=== PATIENT | male | born 1950 | race Caucasian/White ===

== ENCOUNTER 2019-01-07 14:04 | Emergency (ER) | payer OTHER ==
[2019-01-07 14:15] VITALS: BP 154/86; PULSE 96; TEMP 98.6; BMI 34.3
--- NOTE | 2019-01-07 14:15 | PDOC ---
Rapid Medical Evaluation Chief Complaint: Rash Time Seen by Provider: 01/07/19 14:12 Medical Evaluation: Allergies Allergy/AdvReac Type Severity Reaction Status Date / Time Penicillins Allergy Mild Rash Verified 09/15/12 14:08 01/07/19 14:13 I have performed a brief in-person evaluation of this patient. The patient presents with a chief complaint of: rash to left palm, bilatreral groin x 2 weeks= used alcohol to clean both sites. No other meds , no fevers Pertinent physical exam findings: cracked itching to left palm/ and bilateral groins. I have ordered the following: nothing The patient will proceed to the ED for further evaluation. Discharge Disposition - Discharge Dispostion Condition at time of disposition: Stable - Referrals - Patient Instructions - Post Discharge Activity
--- NOTE | 2019-01-07 15:12 | PDOC ---
History of Present Illness - General Chief Complaint: Rash Stated Complaint: LT ARM RASH Time Seen by Provider: 01/07/19 14:12 - History of Present Illness Initial Comments: 01/07/19 15:10 68-year-old male with a past medical history significant for prostate cancer presents for evaluation of the pleuritic rash on his left palm and bilateral legs increasing over the last week or so. No systemic symptoms. Past History - Past Medical History Allergies/Adverse Reactions: Allergies Allergy/AdvReac Type Severity Reaction Status Date / Time Penicillins Allergy Mild Rash Verified 09/15/12 14:08 Home Medications: Ambulatory Orders No Home Medications 0 dose .ROUTE UTDICT 08/04/12 Cyclobenzaprine HCl [Flexeril] 10 mg PO TID PRN #14 tablet 09/15/12 Naproxen [Naprosyn] 500 mg PO BID PRN #20 tablet 09/15/12 Nystatin Cream [Mycostatin Cream -] 1 applic TP BID #1 applic 01/07/19 Cancer: Yes (H/O PROSTATE) COPD: No - Surgical History Appendectomy: Yes - Immunization History Immunization Up to Date: No - Suicide/Smoking/Psychosocial Hx Smoking Status: Yes Smoking History: Never smoked Have you smoked in the past 12 months: No Number of Cigarettes Smoked Daily: 10 Information on smoking cessation initiated: No Hx Alcohol Use: No Drug/Substance Use Hx: No Review of Systems - Review of Systems Integumentary: Yes: Pruritus, Rash *Physical Exam - Vital Signs Last Vital Signs Temp Pulse Resp BP Pulse Ox 98.6 F 96 H 16 154/86 98 01/07/19 14:12 01/07/19 14:12 01/07/19 14:12 01/07/19 14:12 01/07/19 14:12 - Physical Exam Comments: 01/07/19 15:10 There is a mildly erythematous scaly raised rash on the left volar aspect of the wrist same rashes on the anterior aspect of the superior medial thigh. Bilaterally. No indication of infection Medical Decision Making - Medical Decision Making 01/07/19 15:10 This rash appears fungal. I will prescribe nystatin have patient follow-up with dermatology. *DC/Admit/Observation/Transfer Diagnosis at time of Disposition: Rash - Discharge Dispostion Disposition: HOME Condition at time of disposition: Stable Decision to Admit order: No - Prescriptions Prescriptions: Nystatin Cream [Mycostatin Cream -] 1 applic TP BID #1 applic - Referrals Referrals: Sukhdeep Bowden MD [Primary Care Provider] - Rocio Ragsdale MD [Staff Physician] - - Patient Instructions Additional Instructions: Please use the cream as directed return to the emergency room for worsening symptoms and follow-up with dermatology without fail in 1-2 days for further evaluation and treatment options. - Post Discharge Activity
== END 2019-01-07 15:15 | disposition home or self-care (01) ==
LOC: JERFT 14:04
DX: R21 Rash and other nonspecific skin eruption (principal); Z85.46 Personal history of malignant neoplasm of prostate
CPT/HCPCS: 99281-25

== ENCOUNTER 2019-04-14 23:25 | Emergency (ER) | payer OTHER ==
[2019-04-14 23:53] VITALS: BP 128/79; PULSE 89; TEMP 97.5; BMI 29.7
--- NOTE | 2019-04-15 00:04 | PDOC ---
Attending Attestation - Resident Resident Name: Edgardo Gilbert - ED Attending Attestation I have performed the following: I have examined & evaluated the patient, The case was reviewed & discussed with the resident, I agree w/resident's findings & plan - HPI HPI: 04/15/19 00:24 see resident hpi - Physicial Exam PE: 04/15/19 00:24 agree with resident exam - Medical Decision Making 04/15/19 00:24 68 yo male s/p fall with left rib pain CT CAP to r/o pulmonary/splenic injury analgesics exam/history most c/w rib injury
--- NOTE | 2019-04-15 00:07 | PDOC ---
History of Present Illness - General Chief Complaint: Back Pain Stated Complaint: BACK PAIN Time Seen by Provider: 04/14/19 23:51 History Source: Patient Exam Limitations: No Limitations - History of Present Illness Initial Comments: Jules Norman is a 68 yo M w a hx of Prostate problems who works at [employer] in [facility] that presents to the ER with his and daughter with severe left rib pain after he slipped and fell in the bathroom 48 hours ago and landed on his left ribs. Patient states he simply lost his balance, did not hit his head, did not experience any LOC, and did not experience any other injuries. Patient denies having any chest pain, SOB, or difficulty breathing. Patient also denies having a headache, nausea, vomiting, dysuria, frequency, or urgency. PCP: Sukhdeep Bowden PSH: Appendectomy Social Hx: Smokes ~ 9 cigs/day, denies alcohol or illicit drug usage Allergies: Penicillins Past History - Past Medical History Allergies/Adverse Reactions: Allergies Allergy/AdvReac Type Severity Reaction Status Date / Time Penicillins Allergy Mild Rash Verified 04/14/19 23:53 Home Medications: Ambulatory Orders No Home Medications 0 dose .ROUTE UTDICT 08/04/12 Cyclobenzaprine HCl [Flexeril] 10 mg PO TID PRN #14 tablet 09/15/12 Naproxen [Naprosyn] 500 mg PO BID PRN #20 tablet 09/15/12 Nystatin Cream [Mycostatin Cream -] 1 applic TP BID #1 applic 01/07/19 Oxycodone HCl/Acetaminophen [Percocet 5-325 mg Tablet] 1 - 2 tab PO Q8H PRN #12 tab MDD 6 04/15/19 Cancer: Yes (H/O PROSTATE) COPD: No - Surgical History Appendectomy: Yes - Immunization History Immunization Up to Date: No - Psycho Social/Smoking Cessation Hx Smoking Status: Yes Smoking History: Never smoked Have you smoked in the past 12 months: No Number of Cigarettes Smoked Daily: 10 Information on smoking cessation initiated: No Hx Alcohol Use: No Drug/Substance Use Hx: No Review of Systems - Review of Systems Able to Perform ROS?: Yes Comments:: CONSTITUTIONAL: Absent: fever, no chills, no fatigue EYES: Absent: visual changes ENT: Absent: ear pain, no sore throat CARDIOVASCULAR: Absent: chest pain, no palpitations RESPIRATORY: Absent: cough, no SOB GI: Absent: abdominal pain, no nausea, no vomiting, no constipation, no diarrhea GENITOURINARY: Absent: dysuria, no frequency, no hematuria MUSKULOSKELETAL: Present: arthralgia Absent: back pain, no myalgia SKIN: Absent: rash NEURO: Absent: headache *Physical Exam - Vital Signs Last Vital Signs Temp Pulse Resp BP Pulse Ox 97.5 F L 89 19 128/79 98 04/14/19 23:30 04/14/19 23:30 04/14/19 23:30 04/14/19 23:30 04/14/19 23:30 - Physical Exam Comments: GENERAL: Patient is awake, alert and in no acute distress. Speech is clear and appropriate. HEAD: Atraumatic and nontender. HEENT: Pupils are equal round and reactive to light, extraocular movements are intact. No facial deformity. No facial bone tenderness or step-off. NECK: The trachea is midline, there is no stridor. There is no midline cervical spine tenderness, full range of motion of neck. CHEST: There is a significant amount of left lower rib pain in the mid axillary line. No ecchymosis or abrasions. Equal chest wall expansion bilaterally. No flail segments. Lungs are clear to auscultation bilaterally. CARDIOVASCULAR: S1-S2, regular rate and rhythm. No murmurs or rubs. ABDOMEN: Soft, nontender, nondistended. Bowel sounds are normoactive. There is no abdominal or flank ecchymosis. BACK/PELVIS: There is no midline thoracic or lumbosacral spine tenderness or step-off. Pelvis is stable and nontender. EXTREMITIES: There is no extremity deformity or joint swelling. There is significant left lower rib bony tenderness. 2+ distal pulses throughout. NEURO: Alert and oriented x3. 5 out of 5 motor strength x4 extremities. No gross sensory deficits. Gait is stable. SKIN: No abrasions, hematomas, lacerations. PSYCH: Affect is appropriate ED Treatment Course - LABORATORY CBC & Chemistry Diagram: 04/15/19 00:29 04/15/19 00:29 - RADIOLOGY Radiograph Interpretation: CT: EXAM: CT chest, abdomen and pelvis with contrast HISTORY: Trauma COMPARISON: None. FINDINGS: CT chest:There is no aortic dissection or aneurysm. No mediastinal hematoma. There is no significant mediastinal or hilar adenopathy. The heart size is normal. The trachea and bronchi are patent. There is no pleural or pericardial effusion. Multiple right pleural calcified plaques are noted with subpleural atelectasis and/or fibrosis, possibly due to old hemorrhage or old infection. No pneumothorax. No pulmonary contusion. No fractures. CT abdomen and pelvis: Mild bilateral renal scarring is noted. The liver is fatty. Normal gallbladder, pancreas, spleen, adrenal glands . The stomach and abdominal small and large bowel are normal. There is no aortic dissection or aneurysm. There is no significant retroperitoneal lymphadenopathy. No mesenteric edema or retroperitoneal hematoma. The pelvic small and large bowel are normal. There is no evidence of appendicitis. The urinary bladder and prostate gland are normal. No pelvic free fluid is identified. There is no significant pelvic lymphadenopathy. No fractures IMPRESSION: Multifocal right pleural plaques with some adjacent scarring or atelectasis may be secondary to old infection or old hemorrhage. Fatty liver. Bilateral renal scarring. No evidence of acute traumatic pathology in the chest, abdomen or pelvis. Medical Decision Making - Medical Decision Making Jules Norman is a 68 yo M w a hx of Prostate problems who works at [employer] in [facility] that presents to the ER with his and daughter with severe left rib pain after he slipped and fell in the bathroom 48 hours ago and landed on his left ribs. Patient states he simply lost his balance, did not hit his head, did not experience any LOC, and did not experience any other injuries. Patient denies having any chest pain, SOB, or difficulty breathing. Patient also denies having a headache, nausea, vomiting, dysuria, frequency, or urgency. Vital Signs Temp Pulse Resp BP Pulse Ox 97.5 F L 89 19 128/79 98 04/14/19 23:30 04/14/19 23:30 04/14/19 23:30 04/14/19 23:30 04/14/19 23:30 DDx IBNLT: Rib fx, flail segment, pneumothorax, PNA, pulm contusion, splenic rupture vs laceration, ASHA, electrolyte/metabolic disturbance Plan: Labs, analgesia, CT, re-assess. Labs: Elevated BUN CT: Unremarkable Re-assessment: Patient feels better after analgesia Disposition: Home with PCP fu - Percocet for pain control - Incentive spirometry - Return precautions *DC/Admit/Observation/Transfer Diagnosis at time of Disposition: Rib contusion Qualifiers: Encounter type: initial encounter Laterality: left Qualified Code(s): S20.212A - Contusion of left front wall of thorax, initial encounter - Discharge Dispostion Disposition: HOME Condition at time of disposition: Stable Decision to Admit order: No - Prescriptions Prescriptions: Oxycodone HCl/Acetaminophen [Percocet 5-325 mg Tablet] 1 - 2 tab PO Q8H PRN #12 tab MDD 6 PRN Reason: Pain - Referrals Referrals: Sukhdeep Bowden MD [Primary Care Provider] - - Patient Instructions Printed Discharge Instructions: DI for Rib Contusion Additional Instructions: You came into the ER with left rib pain. We did a cat scan which showed no acute fractures. 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 Please make sure to schedule a follow up appointment with your PCP in the next 3 to 5 days. Come back to the ER if your pain worsens or you have any other new or worsening concerns. thank you for coming to the [facility] ER. We hope you feel better soon! Print Language: NIGERIEN - Post Discharge Activity Forms/Work/School Notes: Back to Work Discharge - Discharge Information Problems reviewed: Yes Clinical Impression/Diagnosis: Rib contusion Qualifiers: Encounter type: initial encounter Laterality: left Qualified Code(s): S20.212A - Contusion of left front wall of thorax, initial encounter Condition: Stable Disposition: HOME - Additional Discharge Information Prescriptions: Oxycodone HCl/Acetaminophen [Percocet 5-325 mg Tablet] 1 - 2 tab PO Q8H PRN #12 tab MDD 6 PRN Reason: Pain - Follow up/Referral Referrals: Sukhdeep Bowden MD [Primary Care Provider] - - Patient Discharge Instructions Patient Printed Discharge Instructions: DI for Rib Contusion Additional Instructions: You came into the ER with left rib pain. We did a cat scan which showed no acute fractures. 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 Please make sure to schedule a follow up appointment with your PCP in the next 3 to 5 days. Come back to the ER if your pain worsens or you have any other new or worsening concerns. thank you for coming to the [facility] ER. We hope you feel better soon! Print Language: NIGERIEN - Post Discharge Activity Work/Back to School Note: Back to Work
[2019-04-15] MEDS ORDERED: SODIUM CHLORIDE 0.9% 500 ML INFUS.BAG IV ONE (00:21)
[2019-04-15] MEDS ORDERED: morphine CARPU-JECT 4 MG/1 ML DISP.SYRIN IVPUSH ONE (00:21)
[2019-04-15] MEDS ORDERED: morphine SULFATE 4 MG/ML VIAL ONE (00:28)
[2019-04-15 00:41] LABS: BASO % 1.1 % (0-2.0); EOS % 5.6 % (0-4.5); HEMATOCRIT 44.6 % (35.4-49); HEMOGLOBIN 14.4 GM/dL (11.7-16.9); LYMPH % 9.8 % (8-40); MCH 29.8 pg (25.7-33.7); MCHC 32.3 g/dl (32.0-35.9); MEAN CELL VOLUME 92.2 fl (80-96); MEAN PLT VOLUME 9.2 fl (7.5-11.1); MONO % 7.5 % (3.8-10.2); PLATELET COUNT 172 K/MM3 (134-434); RBC 4.84 M/mm3 (4.00-5.60); RDW 14.9 % (11.9-15.9); WHITE BLOOD COUNT 5.7 K/mm3 (4.0-10.0)
[2019-04-15 01:17] LABS: ALBUMIN 3.7 g/dl (3.4-5.0); BILIRUBIN,TOTAL 0.2 mg/dL (0.2-1); BLOOD UREA NITROGEN 21.2 mg/dL (7-18); CALCIUM 8.8 mg/dL (8.5-10.1); CREATININE 0.8 mg/dL (0.55-1.3); POTASSIUM 3.9 mmol/L (3.5-5.1); TOT PROT 7.5 g/dl (6.4-8.2)
[2019-04-15] MEDS ORDERED: LIDOCAINE 5% TOPICAL PATCH TP ONE (01:20)
[2019-04-15] MEDS ORDERED: LIDOCAINE 5% TOPICAL PATCH ONE (01:21)
[2019-04-15] MEDS ORDERED: LIDOCAINE PATCH REMOVAL MC SCH (22:00)
== END 2019-04-15 03:33 | disposition home or self-care (01) ==
LOC: JER 23:25
PROC: 3E033NZ Introduction of Analgesics, Hypnotics, Sedatives into Peripheral Vein, Percutaneous Approach (ICD-10-PCS; principal; 2019-04-14)
PROC: 3E0337Z Introduction of Electrolytic and Water Balance Substance into Peripheral Vein, Percutaneous Approach (ICD-10-PCS; 2019-04-14)
DX: S20.212A Contusion of left front wall of thorax, initial encounter (principal); W01.0XXA Fall on same level from slipping, tripping and stumbling without subsequent striking against object, initial encounter; Y93.89 Activity, other specified; Y92.002 Bathroom of unspecified non-institutional (private) residence as the place of occurrence of the external cause; Z88.0 Allergy status to penicillin; Z85.46 Personal history of malignant neoplasm of prostate
CPT/HCPCS: 36415; 71260-TC; 74177-TC; 80053; 85025; 99282-25

== ENCOUNTER 2020-11-02 14:39 | Emergency (ER) | payer OTHER ==
[2020-11-02 14:47] VITALS: TEMP 97.9; BMI 46.8
[2020-11-02] MEDS ORDERED: ACETAMINOPHEN 500 MG TABLET (FP) PO ONE (15:20)
[2020-11-02] MEDS ORDERED: ACETAMINOPHEN 325 MG TABLET (FP) ONE (15:46)
[2020-11-02] MEDS ORDERED: BACITRACIN 15 GM TUBE TOPICAL OINTMENT TP ONE (17:48)
[2020-11-02] MEDS ORDERED: BACITRACIN 0.9 GM PACKET ONE (17:58)
[2020-11-02 18:11] VITALS: BP 145/85; PULSE 89
== END 2020-11-02 18:11 | disposition home or self-care (01) ==
LOC: JER 14:39
DX: S00.81XA Abrasion of other part of head, initial encounter (principal); S09.90XA Unspecified injury of head, initial encounter; S76.312A Strain of muscle, fascia and tendon of the posterior muscle group at thigh level, left thigh, initial encounter
CPT/HCPCS: 70450-TC; 72125-TC; 73523-TC-FY; 93005; 93010; 99285-25

== ENCOUNTER 2020-11-03 20:44 | Emergency (ER) | payer OTHER ==
[2020-11-03 20:59] VITALS: BP 106/73; PULSE 84; TEMP 97.8; BMI 34.3
[2020-11-03 23:40] LABS: BASO % 0.8 % (0-2.0); EOS % 4.6 % (0-4.5); HEMATOCRIT 43.2 % (35.4-49); HEMOGLOBIN 14.4 GM/dL (11.7-16.9); LYMPH % 11.7 % (8-40); MCHC 33.4 g/dl (32.0-35.9); MEAN CELL VOLUME 92.8 fl (80-96); MEAN PLT VOLUME 9.8 fl (7.5-11.1); NEUT % 75.9 % (42.8-82.8); PLATELET COUNT 163 K/MM3 (134-434); RBC 4.66 M/mm3 (4.00-5.60); WHITE BLOOD COUNT 6.2 K/mm3 (4.0-10.0)
[2020-11-03 23:50] LABS: INR 0.98 (0.83-1.09); PROTHROMBIN TIME (PATIENT) 11.9 SEC (9.7-13.0)
[2020-11-03 23:53] LABS: ACTIVATED PTT 30.5 SECONDS (25.2-36.5)
[2020-11-03 23:55] LABS: CALCIUM 8.5 mg/dL (8.5-10.1)
[2020-11-03 23:56] LABS: ALBUMIN 3.5 g/dl (3.4-5.0); BLOOD UREA NITROGEN 14.8 mg/dL (7-18)
[2020-11-03 23:59] LABS: CREATININE 0.7 mg/dL (0.55-1.3)
[2020-11-04 00:01] LABS: BILIRUBIN,TOTAL 0.2 mg/dL (0.2-1); TOT PROT 7.6 g/dl (6.4-8.2)
== END 2020-11-04 00:58 | disposition home or self-care (01) ==
LOC: JER 20:44
DX: S00.83XA Contusion of other part of head, initial encounter (principal)
CPT/HCPCS: 36415; 70450-TC; 72125-TC; 73130-TC-RT-FY; 80053; 82550; 82553; 84484; 85025; 85610; 85730; 93005; 93010; 99284-25

== ENCOUNTER 2021-10-31 06:16 | Observation (INO) | payer OTHER ==
[2021-10-31 06:22] VITALS: BMI 28.8
[2021-10-31] MEDS ORDERED: ASPIRIN 81 MG CHEWABLE TABLETS PO ONE (06:25)
[2021-10-31] MEDS ORDERED: ASPIRIN 81 MG CHEWABLE TABLETS ONE (06:29)
[2021-10-31] MEDS ORDERED: ALBUTEROL SO4 2.5/IPRATROPIUM 0.5 INH SOL 3 ML VIAL.NEB. NEB ONE ×2 (06:45→06:48)
[2021-10-31 07:10] LABS: BASO % 1.3 % (0-2.0); EOS % 1.4 % (0-4.5); HEMATOCRIT 46.5 % (35.4-49); HEMOGLOBIN 16.3 GM/dL (11.7-16.9); LYMPH % 21.5 % (8-40); MEAN CELL VOLUME 91.5 fl (80-96); MEAN PLT VOLUME 11.2 fl (7.5-11.1); NEUT % 67.8 % (42.8-82.8); PLATELET COUNT 155 10^3/uL (134-434); RBC 5.08 M/mm3 (4.00-5.60); RDW 14.7 % (11.9-15.9); WHITE BLOOD COUNT 3.5 K/mm3 (4.0-10.0)
[2021-10-31 07:18] LABS: INR 1.05 (0.83-1.09); PROTHROMBIN TIME (PATIENT) 12.1 SEC (9.7-13.0)
[2021-10-31 07:20] LABS: ACTIVATED PTT 30.1 SECONDS (25.2-36.5)
[2021-10-31 07:28] LABS: CHLORIDE 102 mmol/L (98-107); SODIUM 136 mmol/L (136-145)
[2021-10-31 07:31] LABS: ALBUMIN 2.7 g/dl (3.4-5.0); ANION GAP 11 MMOL/L (8-16); CO2 24 mmol/L (21-32); GLUCOSE,RANDOM 182 mg/dL (74-106); MAGNESIUM 1.7 mg/dL (1.8-2.4)
[2021-10-31 07:34] LABS: CREATININE 1.1 mg/dL (0.55-1.3)
[2021-10-31 07:36] LABS: BILIRUBIN,TOTAL 0.9 mg/dL (0.2-1)
[2021-10-31 07:37] LABS: ALK PHOS 98 U/L (45-117)
[2021-10-31 07:39] LABS: BLOOD UREA NITROGEN 22.4 mg/dL (7-18); TOT PROT 6.7 g/dl (6.4-8.2)
[2021-10-31] MEDS ORDERED: MAGNESIUM SULF 50% (8.12 MEQ/2 ML-1 GM VIAL) IVPB ONE (07:39)
[2021-10-31] MEDS ORDERED: LACTATED RINGERS SOLUTION 1000 ML INFUS.BAG IV ONE (07:40)
[2021-10-31] MEDS ORDERED: TRIMETHOBENZAMIDE HCL 200MG/2ML INJ IM ONE ×2 (07:55→08:24)
[2021-10-31] MEDS ORDERED: MAGNESIUM SULF 50% (8.12 MEQ/2 ML-1 GM VIAL) ONE (07:55)
[2021-10-31 09:49] LABS: CHOLESTEROL 271 mg/dL (50-200)
[2021-10-31 09:50] LABS: LDL CHOLESTEROL (ONLY SJRH) 73 mg/dL (5-100)
[2021-10-31 09:52] LABS: HDL CHOLESTEROL 19 mg/dL (40-60)
[2021-10-31] MEDS ORDERED: LORazepam 2 MG/ML SDV VIAL IVPB ONE (09:57)
[2021-10-31 10:03] LABS: TRIGLYCERIDES 2683 mg/dL (0-150)
[2021-10-31] MEDS ORDERED: LORazepam 2 MG/ML SDV VIAL IVPUSH STA (10:09)
[2021-10-31] MEDS: metoPROLOL SUCCINATE 25 MG TAB.SR.24H (FP) PO SCH (15:23)
[2021-10-31] MEDS: ATORVASTATIN CA 40 MG TABLET (FP) PO SCH (21:25)
[2021-11-01] MEDS: GEMFIBROZIL 600 MG TABLET (FP) PO SCH ×2 (06:08→18:14)
[2021-11-01] MEDS: ENOXAPARIN NA (PORCINE) 40 MG/0.4 ML DISP.SYRIN SQ SCH (09:57)
[2021-11-01] MEDS: TAMSULOSIN HCL 0.4 MG CAP PO SCH (09:57)
[2021-11-01] MEDS: metoPROLOL SUCCINATE 25 MG TAB.SR.24H (FP) PO SCH (09:58)
[2021-11-01] MEDS ORDERED: methylPREDNISolone NA SUCC 40 MG/1 ML VIAL IVPUSH SCH (10:00)
[2021-11-01 10:08] LABS: HEMATOCRIT 40.9 % (35.4-49); HEMOGLOBIN 13.4 GM/dL (11.7-16.9); MCH 30.3 pg (25.7-33.7); MCHC 32.8 g/dl (32.0-35.9); MEAN CELL VOLUME 92.4 fl (80-96); MEAN PLT VOLUME 10.6 fl (7.5-11.1); PLATELET COUNT 111 10^3/uL (134-434); RBC 4.42 M/mm3 (4.00-5.60); RDW 14.7 % (11.9-15.9); WHITE BLOOD COUNT 3.1 K/mm3 (4.0-10.0)
[2021-11-01 10:43] LABS: CALCIUM 7.7 mg/dL (8.5-10.1); MAGNESIUM 1.9 mg/dL (1.8-2.4)
[2021-11-01 10:46] LABS: BLOOD UREA NITROGEN 15.7 mg/dL (7-18); CREATININE 1.1 mg/dL (0.55-1.3)
[2021-11-01] MEDS ORDERED: FUROSEMIDE 40 MG/4 ML INJECTABLE VIAL IVPUSH ONE (11:15)
[2021-11-01] MEDS ORDERED: NICOTINE POLACRILEX 4 MG GUM BUC PRN (13:12)
[2021-11-01] MEDS: NICOTINE 21 MG/24 HOURS TOPICAL PATCH TD SCH (14:28)
[2021-11-01] MEDS: methylPREDNISolone NA SUCC 40 MG/1 ML VIAL IVPUSH SCH (18:14)
[2021-11-01] MEDS: LEVALBUTEROL HCL 0.31 MG/3 ML VIAL.NEB IH SCH (21:25)
[2021-11-01] MEDS: ATORVASTATIN CA 40 MG TABLET (FP) PO SCH (21:27)
[2021-11-02] MEDS: methylPREDNISolone NA SUCC 40 MG/1 ML VIAL IVPUSH SCH ×3 (02:30→17:26)
[2021-11-02] MEDS: GEMFIBROZIL 600 MG TABLET (FP) PO SCH ×2 (06:00→17:15)
[2021-11-02 07:11] LABS: HEMATOCRIT 42.9 % (35.4-49); HEMOGLOBIN 14.1 GM/dL (11.7-16.9); MCH 30.3 pg (25.7-33.7); MCHC 32.9 g/dl (32.0-35.9); MEAN PLT VOLUME 10.9 fl (7.5-11.1); PLATELET COUNT 115 10^3/uL (134-434); RBC 4.66 M/mm3 (4.00-5.60); RDW 14.9 % (11.9-15.9); WHITE BLOOD COUNT 6.4 K/mm3 (4.0-10.0)
[2021-11-02 07:36] LABS: BLOOD UREA NITROGEN 17.3 mg/dL (7-18); CALCIUM 8.8 mg/dL (8.5-10.1); MAGNESIUM 1.9 mg/dL (1.8-2.4)
[2021-11-02 07:39] LABS: CREATININE 1.2 mg/dL (0.55-1.3); PHOSPHOROUS 1.8 mg/dL (2.5-4.9)
[2021-11-02] MEDS: LEVALBUTEROL HCL 0.31 MG/3 ML VIAL.NEB IH SCH ×3 (07:44→22:45)
[2021-11-02] MEDS: ENOXAPARIN NA (PORCINE) 40 MG/0.4 ML DISP.SYRIN SQ SCH (09:11)
[2021-11-02] MEDS: TAMSULOSIN HCL 0.4 MG CAP PO SCH (09:11)
[2021-11-02] MEDS: NICOTINE 21 MG/24 HOURS TOPICAL PATCH TD SCH (09:12)
[2021-11-02] MEDS: LISINOPRIL 10 MG TABLET PO SCH (09:12)
[2021-11-02 10:44] LABS: ANISOCYTOSIS 2+; MACROCYTOSIS 0; TEAR DROP CELLS 1+
[2021-11-02] MEDS: FUROSEMIDE 40 MG/4 ML INJECTABLE VIAL IVPUSH SCH (11:11)
[2021-11-02] MEDS: MAGNESIUM OXIDE 400 MG TABLET (FP) PO SCH ×2 (11:11→21:05)
[2021-11-02] MEDS ORDERED: AZITHROMYCIN 250 MG TABLET PO SCH (11:30)
[2021-11-02] MEDS ORDERED: AZITHROMYCIN 250 MG TABLET PO ONE (12:30)
[2021-11-02] MEDS: ATORVASTATIN CA 40 MG TABLET (FP) PO SCH (21:05)
[2021-11-02] MEDS ORDERED: chlordiazePOXIDE HCL 10 MG CAPSULE PO ONE (21:28)
[2021-11-03] MEDS: methylPREDNISolone NA SUCC 40 MG/1 ML VIAL IVPUSH SCH ×2 (02:08→10:43)
[2021-11-03 06:21] VITALS: BP 117/68; PULSE 83; TEMP 98.2
[2021-11-03] MEDS: GEMFIBROZIL 600 MG TABLET (FP) PO SCH (06:39)
[2021-11-03 07:33] LABS: HEMATOCRIT 42.1 % (35.4-49); MCH 30.5 pg (25.7-33.7); MCHC 33.2 g/dl (32.0-35.9); MEAN CELL VOLUME 91.7 fl (80-96); PLATELET COUNT 111 10^3/uL (134-434); RBC 4.59 M/mm3 (4.00-5.60); WHITE BLOOD COUNT 9.5 K/mm3 (4.0-10.0)
[2021-11-03 07:44] LABS: ALBUMIN 2.8 g/dl (3.4-5.0); BLOOD UREA NITROGEN 26.8 mg/dL (7-18)
[2021-11-03 07:45] LABS: CALCIUM 8.6 mg/dL (8.5-10.1)
[2021-11-03 07:47] LABS: CREATININE 1.2 mg/dL (0.55-1.3)
[2021-11-03 07:50] LABS: BILIRUBIN,TOTAL 0.6 mg/dL (0.2-1); TOT PROT 6.5 g/dl (6.4-8.2)
[2021-11-03] MEDS: LEVALBUTEROL HCL 0.31 MG/3 ML VIAL.NEB IH SCH (08:30)
[2021-11-03 09:26] LABS: PLATELET ESTIMATE DECREASED; TARGET CELLS 1+
[2021-11-03] MEDS ORDERED: AZITHROMYCIN 250 MG TABLET PO SCH (10:00)
[2021-11-03] MEDS: FUROSEMIDE 40 MG/4 ML INJECTABLE VIAL IVPUSH SCH (10:42)
[2021-11-03] MEDS: ENOXAPARIN NA (PORCINE) 40 MG/0.4 ML DISP.SYRIN SQ SCH (10:43)
[2021-11-03] MEDS: LISINOPRIL 10 MG TABLET PO SCH (10:44)
[2021-11-03] MEDS: MAGNESIUM OXIDE 400 MG TABLET (FP) PO SCH (10:44)
[2021-11-03] MEDS: TAMSULOSIN HCL 0.4 MG CAP PO SCH (10:44)
[2021-11-03] MEDS: NICOTINE 21 MG/24 HOURS TOPICAL PATCH TD SCH (10:44)
[2021-11-04] MEDS ORDERED: predniSONE 20 MG TABLET (UD) PO SCH (10:00)
== END 2021-11-03 12:46 | disposition home or self-care (01) ==
LOC: JER 06:16 → JERBED 08:25 → J4S 14:59
PROVIDERS: ADMIT Internal Medicine; ATTEND Internal Medicine
PROC: 3E0F7GC Introduction of Other Therapeutic Substance into Respiratory Tract, Via Natural or Artificial Opening (ICD-10-PCS; principal; 2021-10-31)
PROC: 3E023GC Introduction of Other Therapeutic Substance into Muscle, Percutaneous Approach (ICD-10-PCS; 2021-10-31)
PROC: 3E033GC Introduction of Other Therapeutic Substance into Peripheral Vein, Percutaneous Approach (ICD-10-PCS; 2021-10-31)
PROC: 3E0337Z Introduction of Electrolytic and Water Balance Substance into Peripheral Vein, Percutaneous Approach (ICD-10-PCS; 2021-10-31)
PROC: 3E033NZ Introduction of Analgesics, Hypnotics, Sedatives into Peripheral Vein, Percutaneous Approach (ICD-10-PCS; 2021-10-31)
DX: J61 Pneumoconiosis due to asbestos and other mineral fibers (principal); J44.9 Chronic obstructive pulmonary disease, unspecified; R00.2 Palpitations; J84.9 Interstitial pulmonary disease, unspecified; C61 Malignant neoplasm of prostate; K76.0 Fatty (change of) liver, not elsewhere classified; R21 Rash and other nonspecific skin eruption; S20.219A Contusion of unspecified front wall of thorax, initial encounter; X58.XXXA Exposure to other specified factors, initial encounter; Y93.89 Activity, other specified; Y92.89 Other specified places as the place of occurrence of the external cause; E78.5 Hyperlipidemia, unspecified; F17.210 Nicotine dependence, cigarettes, uncomplicated; F10.20 Alcohol dependence, uncomplicated; Z29.8 Encounter for other specified prophylactic measures; Z88.0 Allergy status to penicillin; R97.20 Elevated prostate specific antigen [PSA]; Z71.6 Tobacco abuse counseling
CPT/HCPCS: 36415; 71045-TC-FY; 71275-TC; 74177-TC; 80048; 80053; 80061; 82962; 83036; 83690; 83735; 83880; 84100; 84439; 84443; 84478; 84484; 85025; 85027; 85610; 85730; 93005; 93010; 93306-TC; 93880-TC; 94640; 94761; 96360; 96372; 96374; 96375; 96376; 99291; C9803-CS; G0378; Q9967; U0003; U0005

== ENCOUNTER 2021-11-07 02:28 | Emergency (ER) | payer OTHER ==
[2021-11-07 02:51] VITALS: BMI 32.5
[2021-11-07] MEDS ORDERED: ACETAMINOPHEN 1000 MG/100 ML BAG IVPB ONE (03:26)
[2021-11-07] MEDS ORDERED: ACETAMINOPHEN INJECTION 100 ML IVPB ONE (03:28)
[2021-11-07 03:36] LABS: HEMATOCRIT 40.7 % (35.4-49); HEMOGLOBIN 13.6 GM/dL (11.7-16.9); MCH 30.7 pg (25.7-33.7); MCHC 33.3 g/dl (32.0-35.9); MEAN CELL VOLUME 92.2 fl (80-96); MEAN PLT VOLUME 9.9 fl (7.5-11.1); PLATELET COUNT 136 10^3/uL (134-434); RBC 4.42 M/mm3 (4.00-5.60); RDW 15.1 % (11.9-15.9); WHITE BLOOD COUNT 5.6 K/mm3 (4.0-10.0)
[2021-11-07 03:39] LABS: EPI CELLS 4 /uL (0-25.1); HYALINE CASTS 0 /uL (0-3.1); PH,URINE 6.5 (5.0-8.0); URINE APPEARANCE CLEAR; URINE BACTERIA 1 /uL (0-1359); URINE BILIRUBIN NEGATIVE (NEGATIVE); URINE COLOR YELLOW; URINE GLUCOSE (UA) NEGATIVE (NEGATIVE); URINE KETONE NEGATIVE (NEGATIVE); URINE LEUK ESTERASE NEGATIVE (NEGATIVE); URINE NITRITE NEGATIVE (NEGATIVE); URINE PROTEIN NEGATIVE (NEGATIVE); URINE RBC 39 /uL (0-23.9); URINE UROBILINOGEN 0.2 mg/dL (0.2-1.0); URINE WBC 2 /uL (0-25.8)
[2021-11-07 03:57] LABS: ALBUMIN 2.9 g/dl (3.4-5.0); BLOOD UREA NITROGEN 27.2 mg/dL (7-18); CALCIUM 8.7 mg/dL (8.5-10.1)
[2021-11-07 04:01] LABS: CREATININE 1.6 mg/dL (0.55-1.3)
[2021-11-07 04:02] LABS: BILIRUBIN,TOTAL 0.3 mg/dL (0.2-1); TOT PROT 6.3 g/dl (6.4-8.2)
[2021-11-07] MEDS ORDERED: SODIUM CHLORIDE 0.9% 500 ML INFUS.BAG IV ONE (04:25)
[2021-11-07 04:54] LABS: ANISOCYTOSIS 1+; MACROCYTOSIS 1+
[2021-11-07] MEDS ORDERED: morphine CARPU-JECT 2 MG/1 ML DISP.SYRIN IVPUSH ONE (05:27)
[2021-11-07 06:11] LABS: ALBUMIN 2.8 g/dl (3.4-5.0); BLOOD UREA NITROGEN 25.2 mg/dL (7-18); CALCIUM 8.3 mg/dL (8.5-10.1)
[2021-11-07 06:14] LABS: CREATININE 1.4 mg/dL (0.55-1.3)
[2021-11-07 06:16] LABS: BILIRUBIN,TOTAL 0.3 mg/dL (0.2-1); TOT PROT 6.2 g/dl (6.4-8.2)
[2021-11-07 06:18] VITALS: BP 118/80; PULSE 93; TEMP 97.9
== END 2021-11-07 06:40 | disposition home or self-care (01) ==
LOC: JER 02:28
PROC: 3E0333Z Introduction of Anti-inflammatory into Peripheral Vein, Percutaneous Approach (ICD-10-PCS; principal; 2021-11-07)
PROC: 3E033NZ Introduction of Analgesics, Hypnotics, Sedatives into Peripheral Vein, Percutaneous Approach (ICD-10-PCS; 2021-11-07)
DX: N35.911 Unspecified urethral stricture, male, meatal (principal)
CPT/HCPCS: 36415; 80053; 81003; 85025; 87086; 99284-25

== ENCOUNTER 2022-12-18 15:41 | Inpatient (IN) | payer OTHER ==
[2022-12-18] MEDS ORDERED: methylPREDNISolone NA SUCC 125 MG/2 ML VIAL IVPUSH ONE (16:50)
[2022-12-18] MEDS: ALBUTEROL SO4 2.5/IPRATROPIUM 0.5 INH SOL 3 ML VIAL.NEB. NEB SCH ×4 (16:55→22:08)
[2022-12-18] MEDS ORDERED: AZITHROMYCIN IVPB 500 MG in DEXTROSE 5%-WATER - 250 ML IVPB ONE (17:00)
[2022-12-18 17:04] LABS: BASO % 1.4 % (0-2.0); EOS % 4.6 % (0-4.5); HEMATOCRIT 42.9 % (35.4-49); LYMPH % 8.6 % (8-40); MCH 28.3 pg (25.7-33.7); MCHC 32.5 g/dl (32.0-35.9); MEAN CELL VOLUME 86.9 fl (80-96); MEAN PLT VOLUME 9.7 fl (7.5-11.1); MONO % 10.5 % (3.8-10.2); NEUT % 74.9 % (42.8-82.8); PLATELET COUNT 173 10^3/uL (134-434); RBC 4.94 M/mm3 (4.00-5.60); RDW 17.2 % (11.9-15.9); WHITE BLOOD COUNT 4.5 K/mm3 (4.0-10.0)
[2022-12-18 17:09] LABS: INR 1.11 (0.83-1.09); PROTHROMBIN TIME (PATIENT) 12.9 SEC (9.7-13.0)
[2022-12-18 17:12] LABS: ACTIVATED PTT 31.4 SECONDS (25.2-36.5)
[2022-12-18 17:24] LABS: POTASSIUM 4.4 mmol/L (3.5-5.1)
[2022-12-18 17:26] LABS: BLOOD UREA NITROGEN 13.1 mg/dL (7-18); CALCIUM 9.2 mg/dL (8.5-10.1)
[2022-12-18 17:27] LABS: ALBUMIN 3.6 g/dl (3.4-5.0)
[2022-12-18 17:29] LABS: CREATININE 0.9 mg/dL (0.55-1.3)
[2022-12-18 17:31] LABS: BILIRUBIN,TOTAL 0.4 mg/dL (0.2-1); TOT PROT 7.6 g/dl (6.4-8.2)
[2022-12-18] MEDS ORDERED: AZITHROMYCIN 500 MG TABLET ONE (17:32)
[2022-12-18] MEDS ORDERED: ALBUTEROL SO4 2.5/IPRATROPIUM 0.5 INH SOL 3 ML VIAL.NEB. NEB ONE ×2 (17:32→22:09)
[2022-12-18] MEDS ORDERED: methylPREDNISolone NA SUCC 125 MG/2 ML VIAL ONE (17:33)
[2022-12-18 17:34] LABS: N-TERMINAL BNP 2327.9 pg/ml (5-125)
[2022-12-18] MEDS ORDERED: AZITHROMYCIN IVPB 500 MG/250 ML BAG IVPB ONE (17:42)
[2022-12-18] MEDS ORDERED: FUROSEMIDE 40 MG/4 ML INJECTABLE VIAL IVPUSH ONE (17:54)
[2022-12-18 18:07] LABS: MAGNESIUM 1.9 mg/dL (1.8-2.4)
[2022-12-18] MEDS ORDERED: CEFTRIAXONE 1 GM/50 ML BAG ONE (18:17)
[2022-12-18] MEDS ORDERED: FUROSEMIDE 40 MG/4 ML INJECTABLE VIAL ONE (18:18)
[2022-12-18] MEDS ORDERED: ALBUTEROL SO4 HFA INHALER IH PRN (18:45)
[2022-12-18] MEDS: DOXYCYCLINE INJECTION 100 MG in DEXTROSE 5%-WATER 100 ML IVPB SCH (22:08)
[2022-12-18] MEDS ORDERED: DOXYCYCLINE HYCLATE 100 MG VIAL ONE (22:09)
[2022-12-18 23:49] VITALS: BMI 36.4
[2022-12-19 08:03] LABS: HEMATOCRIT 40.7 % (35.4-49); HEMOGLOBIN 13.5 GM/dL (11.7-16.9); MCH 28.5 pg (25.7-33.7); MCHC 33.3 g/dl (32.0-35.9); MEAN CELL VOLUME 85.7 fl (80-96); MEAN PLT VOLUME 10.7 fl (7.5-11.1); PLATELET COUNT 160 10^3/uL (134-434); RBC 4.75 M/mm3 (4.00-5.60); WHITE BLOOD COUNT 4.4 K/mm3 (4.0-10.0)
[2022-12-19 08:24] LABS: POTASSIUM 4.2 mmol/L (3.5-5.1)
[2022-12-19 08:27] LABS: CALCIUM 9.3 mg/dL (8.5-10.1)
[2022-12-19 08:28] LABS: ALBUMIN 3.5 g/dl (3.4-5.0); BLOOD UREA NITROGEN 15.9 mg/dL (7-18); MAGNESIUM 1.6 mg/dL (1.8-2.4)
[2022-12-19 08:33] LABS: BILIRUBIN,TOTAL 0.5 mg/dL (0.2-1); TOT PROT 7.8 g/dl (6.4-8.2)
[2022-12-19 08:38] LABS: CHOLESTEROL 166 mg/dL (50-200)
[2022-12-19 08:40] LABS: LDL CHOLESTEROL (ONLY SJRH) 95 mg/dL (5-100)
[2022-12-19 08:41] LABS: HDL CHOLESTEROL 58 mg/dL (40-60)
[2022-12-19] MEDS: ALBUTEROL SO4 2.5/IPRATROPIUM 0.5 INH SOL 3 ML VIAL.NEB. NEB SCH ×4 (09:10→20:38)
[2022-12-19] MEDS: CEFTRIAXONE 1 GM in DEXTROSE 5%-WATER - 50 ML IVPB SCH (09:57)
[2022-12-19] MEDS: ENOXAPARIN NA (PORCINE) 40 MG/0.4 ML DISP.SYRIN SQ SCH (09:57)
[2022-12-19] MEDS: DOXYCYCLINE INJECTION 100 MG in DEXTROSE 5%-WATER 100 ML IVPB SCH ×2 (09:57→21:18)
[2022-12-19] MEDS: FUROSEMIDE 40 MG/4 ML INJECTABLE VIAL IVPUSH SCH (09:57)
[2022-12-19] MEDS: TAMSULOSIN HCL 0.4 MG CAP PO SCH (09:57)
[2022-12-19] MEDS ORDERED: AZITHROMYCIN IVPB 250 MG in DEXTROSE 5%-WATER - 250 ML IVPB SCH (10:00)
[2022-12-19 13:50] LABS: ANISOCYTOSIS 1+; MACROCYTOSIS 0; OVALOCYTE 2+
[2022-12-19] MEDS: predniSONE 20 MG TABLET (UD) PO SCH (17:24)
[2022-12-19] MEDS: MELATONIN 5 MG TABLETS PO PRN (21:18)
[2022-12-20] MEDS: ALBUTEROL SO4 2.5/IPRATROPIUM 0.5 INH SOL 3 ML VIAL.NEB. NEB SCH ×4 (07:15→20:38)
[2022-12-20 07:24] LABS: BASO % 0.3 % (0-2.0); HEMATOCRIT 41.9 % (35.4-49); HEMOGLOBIN 13.6 GM/dL (11.7-16.9); MCH 28.2 pg (25.7-33.7); MCHC 32.3 g/dl (32.0-35.9); MEAN CELL VOLUME 87.3 fl (80-96); MEAN PLT VOLUME 10.6 fl (7.5-11.1); MONO % 7.7 % (3.8-10.2); PLATELET COUNT 153 10^3/uL (134-434); RDW 17.1 % (11.9-15.9); WHITE BLOOD COUNT 6.3 K/mm3 (4.0-10.0)
[2022-12-20 07:47] LABS: POTASSIUM 4.3 mmol/L (3.5-5.1)
[2022-12-20 07:59] LABS: ALBUMIN 3.4 g/dl (3.4-5.0); CALCIUM 9.3 mg/dL (8.5-10.1)
[2022-12-20 08:02] LABS: CREATININE 1.1 mg/dL (0.55-1.3); PHOSPHOROUS 4.2 mg/dL (2.5-4.9)
[2022-12-20 08:04] LABS: BILIRUBIN,TOTAL 0.3 mg/dL (0.2-1); TOT PROT 7.1 g/dl (6.4-8.2)
[2022-12-20] MEDS: TAMSULOSIN HCL 0.4 MG CAP PO SCH (10:16)
[2022-12-20] MEDS: predniSONE 20 MG TABLET (UD) PO SCH (10:16)
[2022-12-20] MEDS: ENOXAPARIN NA (PORCINE) 40 MG/0.4 ML DISP.SYRIN SQ SCH (10:16)
[2022-12-20] MEDS: FUROSEMIDE 40 MG/4 ML INJECTABLE VIAL IVPUSH SCH (10:16)
[2022-12-20] MEDS: DOXYCYCLINE INJECTION 100 MG in DEXTROSE 5%-WATER 100 ML IVPB SCH (10:17)
[2022-12-20] MEDS: CEFTRIAXONE 1 GM in DEXTROSE 5%-WATER - 50 ML IVPB SCH (10:17)
[2022-12-20] MEDS: BUDESONIDE/FORMETEROL FUMARATE 160/4.5 mcg INHALER IH SCH ×2 (13:15→21:17)
[2022-12-20] MEDS: SACUBITRIL/VALSARTAN 24 MG-26 MG TABLET PO SCH ×2 (15:28→21:16)
[2022-12-20] MEDS: NICOTINE 14 MG/24 HOURS TOPICAL PATCH TD SCH (16:08)
[2022-12-20] MEDS: DOXYCYCLINE HYCLATE 100 MG CAPSULE PO SCH (17:16)
[2022-12-20] MEDS: MELATONIN 5 MG TABLETS PO PRN (21:16)
[2022-12-20] MEDS: ATORVASTATIN CA 20 MG TABLET (FP) PO SCH (21:16)
[2022-12-21 06:50] LABS: BASO % 0.6 % (0-2.0); EOS % 0.6 % (0-4.5); HEMOGLOBIN 14.6 GM/dL (11.7-16.9); LYMPH % 9.9 % (8-40); MCH 28.7 pg (25.7-33.7); MCHC 33.3 g/dl (32.0-35.9); MEAN CELL VOLUME 86.2 fl (80-96); MEAN PLT VOLUME 10.5 fl (7.5-11.1); MONO % 11.8 % (3.8-10.2); NEUT % 77.1 % (42.8-82.8); PLATELET COUNT 176 10^3/uL (134-434); RDW 17.5 % (11.9-15.9); WHITE BLOOD COUNT 5.9 K/mm3 (4.0-10.0)
[2022-12-21 07:08] LABS: POTASSIUM 4.1 mmol/L (3.5-5.1)
[2022-12-21 07:14] LABS: ALBUMIN 3.5 g/dl (3.4-5.0); CALCIUM 8.8 mg/dL (8.5-10.1)
[2022-12-21 07:15] LABS: BLOOD UREA NITROGEN 28.4 mg/dL (7-18); MAGNESIUM 1.9 mg/dL (1.8-2.4)
[2022-12-21 07:17] LABS: PHOSPHOROUS 3.6 mg/dL (2.5-4.9)
[2022-12-21 07:19] LABS: BILIRUBIN,TOTAL 0.3 mg/dL (0.2-1); TOT PROT 7.2 g/dl (6.4-8.2)
[2022-12-21] MEDS: ALBUTEROL SO4 2.5/IPRATROPIUM 0.5 INH SOL 3 ML VIAL.NEB. NEB SCH ×4 (08:00→20:51)
[2022-12-21] MEDS: ENOXAPARIN NA (PORCINE) 40 MG/0.4 ML DISP.SYRIN SQ SCH (10:51)
[2022-12-21] MEDS: CEFTRIAXONE 1 GM in DEXTROSE 5%-WATER - 50 ML IVPB SCH (10:51)
[2022-12-21] MEDS: DOXYCYCLINE HYCLATE 100 MG CAPSULE PO SCH ×2 (10:52→17:33)
[2022-12-21] MEDS: FUROSEMIDE 40 MG/4 ML INJECTABLE VIAL IVPUSH SCH (10:52)
[2022-12-21] MEDS: SACUBITRIL/VALSARTAN 24 MG-26 MG TABLET PO SCH ×2 (10:52→21:16)
[2022-12-21] MEDS: predniSONE 20 MG TABLET (UD) PO SCH (10:52)
[2022-12-21] MEDS: NICOTINE 14 MG/24 HOURS TOPICAL PATCH TD SCH (10:52)
[2022-12-21] MEDS: TAMSULOSIN HCL 0.4 MG CAP PO SCH (10:52)
[2022-12-21] MEDS: BUDESONIDE/FORMETEROL FUMARATE 160/4.5 mcg INHALER IH SCH ×2 (10:52→21:16)
[2022-12-21] MEDS: ATORVASTATIN CA 20 MG TABLET (FP) PO SCH (21:16)
[2022-12-22 07:33] LABS: BASO % 0.5 % (0-2.0); EOS % 0.6 % (0-4.5); HEMATOCRIT 46.8 % (35.4-49); HEMOGLOBIN 15.6 GM/dL (11.7-16.9); LYMPH % 10.8 % (8-40); MCH 29.1 pg (25.7-33.7); MCHC 33.3 g/dl (32.0-35.9); MEAN CELL VOLUME 87.2 fl (80-96); MEAN PLT VOLUME 10.6 fl (7.5-11.1); NEUT % 77.1 % (42.8-82.8); PLATELET COUNT 172 10^3/uL (134-434); RBC 5.36 M/mm3 (4.00-5.60); RDW 16.8 % (11.9-15.9)
[2022-12-22 07:56] LABS: POTASSIUM 4.3 mmol/L (3.5-5.1)
[2022-12-22 07:58] LABS: ALBUMIN 3.8 g/dl (3.4-5.0); CALCIUM 9.1 mg/dL (8.5-10.1)
[2022-12-22 07:59] LABS: BLOOD UREA NITROGEN 28.2 mg/dL (7-18)
[2022-12-22 08:01] LABS: PHOSPHOROUS 3.3 mg/dL (2.5-4.9)
[2022-12-22 08:03] LABS: BILIRUBIN,TOTAL 0.3 mg/dL (0.2-1); TOT PROT 7.6 g/dl (6.4-8.2)
[2022-12-22] MEDS: ALBUTEROL SO4 2.5/IPRATROPIUM 0.5 INH SOL 3 ML VIAL.NEB. NEB SCH ×4 (08:23→20:43)
[2022-12-22] MEDS: DOXYCYCLINE HYCLATE 100 MG CAPSULE PO SCH (09:43)
[2022-12-22] MEDS: FUROSEMIDE 40 MG/4 ML INJECTABLE VIAL IVPUSH SCH (09:44)
[2022-12-22] MEDS: SACUBITRIL/VALSARTAN 24 MG-26 MG TABLET PO SCH ×2 (09:44→21:07)
[2022-12-22] MEDS: ENOXAPARIN NA (PORCINE) 40 MG/0.4 ML DISP.SYRIN SQ SCH (09:44)
[2022-12-22] MEDS: CEFTRIAXONE 1 GM in DEXTROSE 5%-WATER - 50 ML IVPB SCH (09:44)
[2022-12-22] MEDS: TAMSULOSIN HCL 0.4 MG CAP PO SCH (09:45)
[2022-12-22] MEDS: predniSONE 20 MG TABLET (UD) PO SCH (09:45)
[2022-12-22] MEDS: NICOTINE 14 MG/24 HOURS TOPICAL PATCH TD SCH (09:46)
[2022-12-22] MEDS: BUDESONIDE/FORMETEROL FUMARATE 160/4.5 mcg INHALER IH SCH ×2 (09:46→21:12)
[2022-12-22] MEDS: METOPROLOL TARTRATE 25 MG TABLET (FP) PO SCH ×2 (11:01→21:11)
[2022-12-22] MEDS: ATORVASTATIN CA 20 MG TABLET (FP) PO SCH (21:11)
[2022-12-22] MEDS: MELATONIN 5 MG TABLETS PO PRN (21:11)
[2022-12-23] MEDS: ALBUTEROL SO4 2.5/IPRATROPIUM 0.5 INH SOL 3 ML VIAL.NEB. NEB SCH ×4 (07:28→20:10)
[2022-12-23 08:14] LABS: BASO % 0.6 % (0-2.0); EOS % 1.9 % (0-4.5); HEMATOCRIT 45.4 % (35.4-49); HEMOGLOBIN 14.9 GM/dL (11.7-16.9); LYMPH % 13.9 % (8-40); MCH 28.4 pg (25.7-33.7); MCHC 32.8 g/dl (32.0-35.9); MEAN CELL VOLUME 86.5 fl (80-96); MEAN PLT VOLUME 10.4 fl (7.5-11.1); NEUT % 70.6 % (42.8-82.8); PLATELET COUNT 189 10^3/uL (134-434); RBC 5.25 M/mm3 (4.00-5.60); RDW 17.2 % (11.9-15.9); WHITE BLOOD COUNT 5.4 K/mm3 (4.0-10.0)
[2022-12-23 08:38] LABS: POTASSIUM 4.9 mmol/L (3.5-5.1)
[2022-12-23 08:42] LABS: ALBUMIN 3.4 g/dl (3.4-5.0); BLOOD UREA NITROGEN 31.6 mg/dL (7-18); CALCIUM 8.9 mg/dL (8.5-10.1); MAGNESIUM 1.9 mg/dL (1.8-2.4)
[2022-12-23 08:45] LABS: CREATININE 1.1 mg/dL (0.55-1.3)
[2022-12-23 08:47] LABS: BILIRUBIN,TOTAL 0.3 mg/dL (0.2-1); TOT PROT 7.2 g/dl (6.4-8.2)
[2022-12-23] MEDS: ENOXAPARIN NA (PORCINE) 40 MG/0.4 ML DISP.SYRIN SQ SCH (09:38)
[2022-12-23] MEDS: CEFTRIAXONE 1 GM in DEXTROSE 5%-WATER - 50 ML IVPB SCH (09:38)
[2022-12-23] MEDS: FUROSEMIDE 40 MG/4 ML INJECTABLE VIAL IVPUSH SCH (09:38)
[2022-12-23] MEDS: NICOTINE 21 MG/24 HOURS TOPICAL PATCH TD SCH (09:38)
[2022-12-23] MEDS: METOPROLOL TARTRATE 25 MG TABLET (FP) PO SCH (09:39)
[2022-12-23] MEDS: predniSONE 20 MG TABLET (UD) PO SCH (09:39)
[2022-12-23] MEDS: BUDESONIDE/FORMETEROL FUMARATE 160/4.5 mcg INHALER IH SCH ×2 (09:39→21:56)
[2022-12-23] MEDS: SACUBITRIL/VALSARTAN 24 MG-26 MG TABLET PO SCH ×2 (09:39→21:56)
[2022-12-23] MEDS: TAMSULOSIN HCL 0.4 MG CAP PO SCH (09:39)
[2022-12-23] MEDS ORDERED: METOPROLOL TARTRATE 25 MG TABLET (FP) PO ONE (14:35)
[2022-12-23] MEDS ORDERED: MAGNESIUM OXIDE 400 MG TABLET (FP) PO ONE (14:37)
[2022-12-23] MEDS: METOPROLOL TARTRATE 50 MG TABLET (FP) PO SCH (21:55)
[2022-12-23] MEDS: ATORVASTATIN CA 20 MG TABLET (FP) PO SCH (21:56)
[2022-12-23] MEDS: MELATONIN 5 MG TABLETS PO PRN (21:57)
[2022-12-24] MEDS: ALBUTEROL SO4 2.5/IPRATROPIUM 0.5 INH SOL 3 ML VIAL.NEB. NEB SCH ×4 (07:05→20:05)
[2022-12-24 08:43] LABS: POTASSIUM 5.1 mmol/L (3.5-5.1)
[2022-12-24 08:45] LABS: CALCIUM 9.1 mg/dL (8.5-10.1)
[2022-12-24 08:46] LABS: ALBUMIN 3.6 g/dl (3.4-5.0); BLOOD UREA NITROGEN 34.3 mg/dL (7-18); MAGNESIUM 2.2 mg/dL (1.8-2.4)
[2022-12-24 08:49] LABS: CREATININE 1.2 mg/dL (0.55-1.3)
[2022-12-24 08:50] LABS: BILIRUBIN,TOTAL 0.6 mg/dL (0.2-1); TOT PROT 7.2 g/dl (6.4-8.2)
[2022-12-24] MEDS: NICOTINE 21 MG/24 HOURS TOPICAL PATCH TD SCH (10:30)
[2022-12-24] MEDS: METOPROLOL TARTRATE 50 MG TABLET (FP) PO SCH ×2 (10:30→21:36)
[2022-12-24] MEDS: ENOXAPARIN NA (PORCINE) 40 MG/0.4 ML DISP.SYRIN SQ SCH (10:30)
[2022-12-24] MEDS: BUDESONIDE/FORMETEROL FUMARATE 160/4.5 mcg INHALER IH SCH ×2 (10:30→21:37)
[2022-12-24] MEDS: TAMSULOSIN HCL 0.4 MG CAP PO SCH (10:30)
[2022-12-24] MEDS: SACUBITRIL/VALSARTAN 24 MG-26 MG TABLET PO SCH ×2 (10:30→21:37)
[2022-12-24] MEDS: CEFTRIAXONE 1 GM in DEXTROSE 5%-WATER - 50 ML IVPB SCH (10:30)
[2022-12-24] MEDS: ATORVASTATIN CA 20 MG TABLET (FP) PO SCH (21:36)
[2022-12-24] MEDS: MELATONIN 5 MG TABLETS PO PRN (21:36)
[2022-12-25] MEDS ORDERED: guaiFENesin 200 MG/10 ML 10 ML UNIT-DOSE CUPS PO PRN (02:42)
[2022-12-25] MEDS ORDERED: SODIUM CHLORIDE NASAL SPRAY 44 ML BOTTLE NS PRN (02:45)
[2022-12-25 07:07] LABS: CALCIUM 8.8 mg/dL (8.5-10.1)
[2022-12-25 07:08] LABS: ALBUMIN 3.4 g/dl (3.4-5.0); BLOOD UREA NITROGEN 38.4 mg/dL (7-18); MAGNESIUM 2.1 mg/dL (1.8-2.4)
[2022-12-25 07:11] LABS: CREATININE 1.1 mg/dL (0.55-1.3); PHOSPHOROUS 4.7 mg/dL (2.5-4.9)
[2022-12-25 07:12] LABS: BILIRUBIN,TOTAL 0.5 mg/dL (0.2-1); TOT PROT 6.7 g/dl (6.4-8.2)
[2022-12-25] MEDS: ALBUTEROL SO4 2.5/IPRATROPIUM 0.5 INH SOL 3 ML VIAL.NEB. NEB SCH ×4 (08:45→19:56)
[2022-12-25] MEDS: SPIRONOLACTONE 25 MG TABLET PO SCH (09:09)
[2022-12-25] MEDS: SACUBITRIL/VALSARTAN 24 MG-26 MG TABLET PO SCH ×2 (09:10→21:09)
[2022-12-25] MEDS: ENOXAPARIN NA (PORCINE) 40 MG/0.4 ML DISP.SYRIN SQ SCH (09:10)
[2022-12-25] MEDS: CEFTRIAXONE 1 GM in DEXTROSE 5%-WATER - 50 ML IVPB SCH (09:10)
[2022-12-25] MEDS: BUDESONIDE/FORMETEROL FUMARATE 160/4.5 mcg INHALER IH SCH ×2 (09:10→21:10)
[2022-12-25] MEDS: TAMSULOSIN HCL 0.4 MG CAP PO SCH (09:10)
[2022-12-25] MEDS: NICOTINE 21 MG/24 HOURS TOPICAL PATCH TD SCH (09:10)
[2022-12-25] MEDS: METOPROLOL TARTRATE 50 MG TABLET (FP) PO SCH ×2 (09:10→21:09)
[2022-12-25] MEDS: MELATONIN 5 MG TABLETS PO PRN (21:09)
[2022-12-25] MEDS: ATORVASTATIN CA 20 MG TABLET (FP) PO SCH (21:09)
[2022-12-26] MEDS: ALBUTEROL SO4 2.5/IPRATROPIUM 0.5 INH SOL 3 ML VIAL.NEB. NEB SCH ×4 (08:45→20:52)
[2022-12-26 08:48] LABS: POTASSIUM 4.7 mmol/L (3.5-5.1)
[2022-12-26 08:56] LABS: ALBUMIN 3.4 g/dl (3.4-5.0); BLOOD UREA NITROGEN 32.4 mg/dL (7-18); CALCIUM 9.1 mg/dL (8.5-10.1); MAGNESIUM 2.2 mg/dL (1.8-2.4)
[2022-12-26 08:59] LABS: CREATININE 1.1 mg/dL (0.55-1.3); PHOSPHOROUS 4.4 mg/dL (2.5-4.9)
[2022-12-26 09:01] LABS: BILIRUBIN,TOTAL 0.4 mg/dL (0.2-1); TOT PROT 6.7 g/dl (6.4-8.2)
[2022-12-26] MEDS: TAMSULOSIN HCL 0.4 MG CAP PO SCH (09:19)
[2022-12-26] MEDS: SPIRONOLACTONE 25 MG TABLET PO SCH (09:20)
[2022-12-26] MEDS: METOPROLOL TARTRATE 50 MG TABLET (FP) PO SCH ×2 (09:21→21:41)
[2022-12-26] MEDS: SACUBITRIL/VALSARTAN 24 MG-26 MG TABLET PO SCH ×2 (09:21→21:40)
[2022-12-26] MEDS: ENOXAPARIN NA (PORCINE) 40 MG/0.4 ML DISP.SYRIN SQ SCH (09:22)
[2022-12-26] MEDS: BUDESONIDE/FORMETEROL FUMARATE 160/4.5 mcg INHALER IH SCH ×2 (09:22→21:44)
[2022-12-26] MEDS: NICOTINE 21 MG/24 HOURS TOPICAL PATCH TD SCH (09:22)
[2022-12-26 14:03] VITALS: RESP 18
[2022-12-26 18:40] VITALS: BP 89/56; PULSE 45; TEMP 97.7
[2022-12-26] MEDS: ATORVASTATIN CA 20 MG TABLET (FP) PO SCH (21:41)
== END 2022-12-26 22:10 | disposition short-term general hospital (02) | DRG 291 ==
LOC: JER 15:41 → JERBED 17:52 → J4W 12-19 00:13
PROVIDERS: ADMIT Internal Medicine; ATTEND Internal Medicine
DX: I11.0 Hypertensive heart disease with heart failure (principal); I50.33 Acute on chronic diastolic (congestive) heart failure; J18.9 Pneumonia, unspecified organism; J44.1 Chronic obstructive pulmonary disease with (acute) exacerbation; F17.210 Nicotine dependence, cigarettes, uncomplicated; E66.9 Obesity, unspecified; Z68.36 Body mass index [BMI] 36.0-36.9, adult
CPT/HCPCS: 0241U-QW; 36415; 71045-TC-FY; 71046-TC-FY; 80053; 80061; 83036; 83735; 83880; 84100; 84153; 84484; 85025; 85610; 85730; 87635; 93005; 93010; 93306-TC; 94010; 94640; 94761; 99285-25

== ENCOUNTER 2023-06-15 06:11 | Observation (INO) | payer OTHER ==
[2023-06-15] MEDS ORDERED: ACETAMINOPHEN 1000 MG/100 ML BAG IVPB ONE (07:59)
[2023-06-15] MEDS ORDERED: ACETAMINOPHEN INJECTION 100 ML IVPB ONE (08:02)
[2023-06-15 08:04] LABS: HEMATOCRIT 49.3 % (35.4-49); HEMOGLOBIN 15.6 GM/dL (11.7-16.9); MCH 29.4 pg (25.7-33.7); MCHC 31.6 g/dl (32.0-35.9); MEAN CELL VOLUME 93.1 fl (80-96); MEAN PLT VOLUME 9.4 fl (7.5-11.1); PLATELET COUNT 199 10^3/uL (134-434); RBC 5.29 M/mm3 (4.00-5.60); RDW 15.6 % (11.9-15.9); WHITE BLOOD COUNT 6.4 K/mm3 (4.0-10.0)
[2023-06-15 08:21] LABS: POTASSIUM 4.3 mmol/L (3.5-5.1)
[2023-06-15 08:23] LABS: ALBUMIN 3.8 g/dl (3.4-5.0); BLOOD UREA NITROGEN 26.8 mg/dL (7-18); CALCIUM 8.9 mg/dL (8.5-10.1)
[2023-06-15 08:27] LABS: CREATININE 1.6 mg/dL (0.55-1.3)
[2023-06-15 08:28] LABS: BILIRUBIN,TOTAL 0.3 mg/dL (0.2-1); TOT PROT 8.1 g/dl (6.4-8.2)
[2023-06-15] MEDS ORDERED: SODIUM CHLORIDE 0.9% 500 ML INFUS.BAG IV ONE ×2 (08:32→12:26)
[2023-06-15 09:40] LABS: EPI CELLS 33 /uL (0-25.1); HYALINE CASTS 1 /uL (0-3.1); URINE APPEARANCE CLEAR; URINE BACTERIA 63 /uL (0-1359); URINE BILIRUBIN NEGATIVE (NEGATIVE); URINE COLOR YELLOW; URINE GLUCOSE (UA) 2+ (NEGATIVE); URINE KETONE NEGATIVE (NEGATIVE); URINE LEUK ESTERASE NEGATIVE (NEGATIVE); URINE NITRITE NEGATIVE (NEGATIVE); URINE PROTEIN NEGATIVE (NEGATIVE); URINE RBC 1284 /uL (0-23.9); URINE UROBILINOGEN 0.2 mg/dL (0.2-1.0); URINE WBC 43 /uL (0-25.8)
[2023-06-15] MEDS ORDERED: LIDOCAINE HCL 2% JELLY 10 ML CARTRIDGE UR ONE (10:53)
[2023-06-15] MEDS ORDERED: LIDOCAINE HCL 2% JELLY 6 ML TP ONE (10:53)
[2023-06-15] MEDS ORDERED: morphine CARPU-JECT 2 MG/1 ML DISP.SYRIN IVPUSH ONE (10:57)
[2023-06-15] MEDS ORDERED: LIDOCAINE HCL 2% JELLY 11 ML TP ONE ×2 (11:36→12:16)
[2023-06-15 16:17] VITALS: RESP 18
[2023-06-15 16:37] VITALS: BMI 36.3
[2023-06-15] MEDS: TAMSULOSIN HCL 0.4 MG CAP PO SCH (21:25)
[2023-06-15] MEDS: HEPARIN NA (PORCINE) 5,000 UNITS/ML 1ML VIAL SQ SCH (21:26)
[2023-06-15] MEDS ORDERED: MELATONIN 5 MG TABLETS PO ONE (22:21)
[2023-06-15] MEDS: BUDESONIDE/FORMOTEROL FUMARATE 160-4.5 MCG (10.3 GM INHALER) IH SCH (22:58)
[2023-06-16 08:30] LABS: POTASSIUM 3.9 mmol/L (3.5-5.1)
[2023-06-16 08:33] LABS: BLOOD UREA NITROGEN 20.1 mg/dL (7-18)
[2023-06-16 08:36] LABS: CALCIUM 8.9 mg/dL (8.5-10.1); CREATININE 1.3 mg/dL (0.55-1.3)
[2023-06-16] MEDS: ASPIRIN COATED 81 MG TABLET.EC PO SCH (09:04)
[2023-06-16] MEDS: BUDESONIDE/FORMOTEROL FUMARATE 160-4.5 MCG (10.3 GM INHALER) IH SCH ×2 (09:05→21:48)
[2023-06-16] MEDS: TAMSULOSIN HCL 0.4 MG CAP PO SCH ×2 (09:05→21:47)
[2023-06-16] MEDS: HEPARIN NA (PORCINE) 5,000 UNITS/ML 1ML VIAL SQ SCH ×2 (09:05→21:47)
[2023-06-16] MEDS: SACUBITRIL/VALSARTAN 24 MG-26 MG TABLET PO SCH (09:05)
[2023-06-16] MEDS ORDERED: FUROSEMIDE 20 MG TABLET (FP) PO SCH (10:00)
[2023-06-16] MEDS ORDERED: MELATONIN 5 MG TABLETS PO PRN (18:58)
[2023-06-16] MEDS: ACETAMINOPHEN 325 MG TABLET (FP) PO PRN (21:55)
[2023-06-17 08:53] VITALS: TEMP 97.8
[2023-06-17] MEDS: TAMSULOSIN HCL 0.4 MG CAP PO SCH (09:03)
[2023-06-17] MEDS: HEPARIN NA (PORCINE) 5,000 UNITS/ML 1ML VIAL SQ SCH (09:03)
[2023-06-17] MEDS: SACUBITRIL/VALSARTAN 24 MG-26 MG TABLET PO SCH (09:04)
[2023-06-17] MEDS: BUDESONIDE/FORMOTEROL FUMARATE 160-4.5 MCG (10.3 GM INHALER) IH SCH (09:04)
[2023-06-17] MEDS: ACETAMINOPHEN 325 MG TABLET (FP) PO PRN (09:04)
[2023-06-17] MEDS: ASPIRIN COATED 81 MG TABLET.EC PO SCH (09:04)
[2023-06-17 14:18] VITALS: BP 102/59; PULSE 60
== END 2023-06-17 17:15 | disposition home or self-care (01) ==
LOC: JER 06:11 → JERBED 14:50 → J6S 16:49
PROVIDERS: ADMIT Internal Medicine; ATTEND Internal Medicine
PROC: 3E033NZ Introduction of Analgesics, Hypnotics, Sedatives into Peripheral Vein, Percutaneous Approach (ICD-10-PCS; principal; 2023-06-15)
PROC: 3E023GC Introduction of Other Therapeutic Substance into Muscle, Percutaneous Approach (ICD-10-PCS; 2023-06-15)
PROC: 0T9B70Z Drainage of Bladder with Drainage Device, Via Natural or Artificial Opening (ICD-10-PCS; 2023-06-15)
PROC: 3E0337Z Introduction of Electrolytic and Water Balance Substance into Peripheral Vein, Percutaneous Approach (ICD-10-PCS; 2023-06-15)
DX: N17.9 Acute kidney failure, unspecified (principal); I25.10 Atherosclerotic heart disease of native coronary artery without angina pectoris; R33.9 Retention of urine, unspecified; J44.9 Chronic obstructive pulmonary disease, unspecified; Z85.46 Personal history of malignant neoplasm of prostate; I50.30 Unspecified diastolic (congestive) heart failure; N40.0 Benign prostatic hyperplasia without lower urinary tract symptoms; N20.0 Calculus of kidney; Z88.0 Allergy status to penicillin
CPT/HCPCS: 36415; 51702; 74176-TC; 80048; 80053; 81003; 85027; 87086; 93005; 93010; 96372; 96374; 96375; 99285-25; G0378; J1644

== ENCOUNTER 2023-07-05 09:16 | Emergency (ER) | payer OTHER ==
[2023-07-05 09:25] VITALS: TEMP 97.6; BMI 36.1
[2023-07-05] MEDS ORDERED: ACETAMINOPHEN 1000 MG/100 ML BAG IVPB ONE (10:48)
[2023-07-05 10:50] LABS: BASO % 0.3 % (0-2.0); EOS % 2.6 % (0-4.5); HEMATOCRIT 46.2 % (35.4-49); LYMPH % 3.8 % (8-40); MCH 29.3 pg (25.7-33.7); MCHC 32.5 g/dl (32.0-35.9); MEAN CELL VOLUME 90.3 fl (80-96); MEAN PLT VOLUME 8.9 fl (7.5-11.1); MONO % 7.7 % (3.8-10.2); NEUT % 85.6 % (42.8-82.8); PLATELET COUNT 231 10^3/uL (134-434); RBC 5.12 M/mm3 (4.00-5.60); RDW 15.1 % (11.9-15.9); WHITE BLOOD COUNT 6.6 K/mm3 (4.0-10.0)
[2023-07-05 11:13] LABS: POTASSIUM 3.8 mmol/L (3.5-5.1)
[2023-07-05 11:15] LABS: CALCIUM 8.7 mg/dL (8.5-10.1)
[2023-07-05 11:17] LABS: ALBUMIN 3.5 g/dl (3.4-5.0)
[2023-07-05 11:19] LABS: CREATININE 1.4 mg/dL (0.55-1.3)
[2023-07-05 11:20] LABS: TOT PROT 7.4 g/dl (6.4-8.2)
[2023-07-05 11:27] LABS: BILIRUBIN,TOTAL 0.3 mg/dL (0.2-1)
[2023-07-05 11:41] LABS: EPI CELLS 2 /uL (0-25.1); HYALINE CASTS 0 /uL (0-3.1); PH,URINE 5.5 (5.0-8.0); URINE APPEARANCE CLEAR; URINE BILIRUBIN NEGATIVE (NEGATIVE); URINE COLOR DK YELLOW; URINE GLUCOSE (UA) 3+ (NEGATIVE); URINE KETONE NEGATIVE (NEGATIVE); URINE LEUK ESTERASE 1+ (NEGATIVE); URINE NITRITE POSITIVE (NEGATIVE); URINE PROTEIN NEGATIVE (NEGATIVE); URINE RBC 40 /uL (0-23.9); URINE WBC 66 /uL (0-25.8)
[2023-07-05] MEDS ORDERED: ACETAMINOPHEN INJECTION 100 ML IVPB ONE (11:44)
[2023-07-05] MEDS ORDERED: CEFTRIAXONE 1 GM in DEXTROSE 5%-WATER - 50 ML IVPB ONE (13:00)
[2023-07-05] MEDS ORDERED: CEFTRIAXONE 1 GM/50 ML BAG ONE (13:19)
[2023-07-05 14:51] VITALS: BP 119/76; PULSE 104; RESP 18
== END 2023-07-05 14:53 | disposition home or self-care (01) ==
LOC: JER 09:16
PROC: 3E03329 Introduction of Other Anti-infective into Peripheral Vein, Percutaneous Approach (ICD-10-PCS; principal; 2023-07-05)
PROC: 3E033NZ Introduction of Analgesics, Hypnotics, Sedatives into Peripheral Vein, Percutaneous Approach (ICD-10-PCS; 2023-07-05)
PROC: 0T2BX0Z Change Drainage Device in Bladder, External Approach (ICD-10-PCS; 2023-07-05)
DX: R33.9 Retention of urine, unspecified (principal); K62.5 Hemorrhage of anus and rectum
CPT/HCPCS: 36415; 74176-TC; 80053; 81003; 82272; 83690; 85025; 87086; 99284-25

== ENCOUNTER 2023-08-29 21:46 | Emergency (ER) | payer OTHER ==
[2023-08-29 21:54] VITALS: BMI 35.7
[2023-08-29 23:44] LABS: CHLORIDE 107 mmol/L (98-107)
[2023-08-29 23:46] LABS: CALCIUM 7.7 mg/dL (8.5-10.1)
[2023-08-29 23:47] LABS: BLOOD UREA NITROGEN 14.8 mg/dL (7-18); CO2 24 mmol/L (21-32); GLUCOSE,RANDOM 129 mg/dL (74-106)
[2023-08-29 23:50] LABS: CREATININE 1.1 mg/dL (0.55-1.3)
[2023-08-29] MEDS ORDERED: ACETAMINOPHEN INJECTION 100 ML IVPB ONE (23:50)
[2023-08-29 23:52] LABS: TOT PROT 9.2 g/dl (6.4-8.2)
[2023-08-29 23:53] LABS: ALK PHOS 117 U/L (45-117)
[2023-08-29 23:54] LABS: BASO % 0.5 % (0-2.0); EOS % 4.9 % (0-4.5); HEMATOCRIT 41.2 % (35.4-49); HEMOGLOBIN 13.5 GM/dL (11.7-16.9); LYMPH % 5.2 % (8-40); MCH 29.1 pg (25.7-33.7); MCHC 32.8 g/dl (32.0-35.9); MEAN CELL VOLUME 88.6 fl (80-96); MONO % 7.2 % (3.8-10.2); NEUT % 82.2 % (42.8-82.8); PLATELET COUNT 203 10^3/uL (134-434); RBC 4.65 M/mm3 (4.00-5.60); RDW 16.4 % (11.9-15.9); WHITE BLOOD COUNT 7.3 K/mm3 (4.0-10.0)
[2023-08-29] MEDS: ACETAMINOPHEN 1000 MG/100 ML BAG IVPB ONE (23:55)
[2023-08-30 00:04] LABS: EPI CELLS 11 /uL (0-25.1); HYALINE CASTS 2 /uL (0-3.1); URINE APPEARANCE CLEAR; URINE BACTERIA 0 /uL (0-1359); URINE BILIRUBIN 1+ (NEGATIVE); URINE COLOR RED; URINE GLUCOSE (UA) NEGATIVE (NEGATIVE); URINE KETONE NEGATIVE (NEGATIVE); URINE LEUK ESTERASE 1+ (NEGATIVE); URINE NITRITE NEGATIVE (NEGATIVE); URINE PROTEIN 3+ (NEGATIVE); URINE RBC 28563 /uL (0-23.9); URINE UROBILINOGEN 0.2 mg/dL (0.2-1.0); URINE WBC 89 /uL (0-25.8)
[2023-08-30] MEDS: SULFAMETHOXAZOLE/TRIMETHOPRIM 800MG/160MG D.S. TABLET PO ONE (01:11)
[2023-08-30 01:13] VITALS: BP 100/75; PULSE 89; RESP 16; TEMP 98.3
== END 2023-08-30 01:15 | disposition home or self-care (01) ==
LOC: JER 21:46
PROC: 3E033NZ Introduction of Analgesics, Hypnotics, Sedatives into Peripheral Vein, Percutaneous Approach (ICD-10-PCS; principal; 2023-08-29)
DX: R33.9 Retention of urine, unspecified (principal); R31.9 Hematuria, unspecified
CPT/HCPCS: 36415; 80053; 81003; 85025; 87086; 99284-25; J0131

== ENCOUNTER 2023-09-09 05:06 | Emergency (ER) | payer OTHER ==
[2023-09-09] MEDS ORDERED: LIDOCAINE HCL 2% JELLY 11 ML TP ONE (05:40)
[2023-09-09 06:49] VITALS: BP 134/88; PULSE 93; RESP 18; TEMP 98.7; BMI 35.7
== END 2023-09-09 07:40 | disposition home or self-care (01) ==
LOC: JER 05:06
DX: T83.091A Other mechanical complication of indwelling urethral catheter, initial encounter (principal); R31.9 Hematuria, unspecified; R39.198 Other difficulties with micturition
CPT/HCPCS: 99283-25; 99284-25

== ENCOUNTER 2023-09-09 17:33 | Inpatient (IN) | payer OTHER ==
[2023-09-09] MEDS ORDERED: morphine SULFATE 4 MG/ML VIAL ONE (18:23)
[2023-09-09 18:25] LABS: BASO % 0.9 % (0-2.0); EOS % 2.4 % (0-4.5); HEMATOCRIT 41.2 % (35.4-49); HEMOGLOBIN 13.4 GM/dL (11.7-16.9); LYMPH % 4.9 % (8-40); MCH 28.9 pg (25.7-33.7); MCHC 32.6 g/dl (32.0-35.9); MEAN CELL VOLUME 88.9 fl (80-96); MEAN PLT VOLUME 8.9 fl (7.5-11.1); MONO % 10.4 % (3.8-10.2); NEUT % 81.4 % (42.8-82.8); PLATELET COUNT 215 10^3/uL (134-434); RBC 4.64 M/mm3 (4.00-5.60); RDW 16.8 % (11.9-15.9); WHITE BLOOD COUNT 12.9 K/mm3 (4.0-10.0)
[2023-09-09] MEDS: morphine CARPU-JECT 4 MG/1 ML DISP.SYRIN IVPUSH ONE (18:28)
[2023-09-09 18:32] LABS: INR 1.21 (0.83-1.09)
[2023-09-09 18:35] LABS: ACTIVATED PTT 30.6 SECONDS (25.2-36.5)
[2023-09-09 19:07] LABS: POTASSIUM 4.4 mmol/L (3.5-5.1)
[2023-09-09 19:11] LABS: CALCIUM 8.6 mg/dL (8.5-10.1)
[2023-09-09 19:12] LABS: ALBUMIN 3.5 g/dl (3.4-5.0); BLOOD UREA NITROGEN 20.1 mg/dL (7-18); MAGNESIUM 2.1 mg/dL (1.8-2.4)
[2023-09-09 19:15] LABS: CREATININE 1.3 mg/dL (0.55-1.3)
[2023-09-09 19:16] LABS: BILIRUBIN,TOTAL 0.4 mg/dL (0.2-1)
[2023-09-09 19:17] LABS: TOT PROT 7.4 g/dl (6.4-8.2)
[2023-09-10] MEDS ORDERED: ACETAMINOPHEN 1000 MG/100 ML BAG IVPB PRN (00:27)
[2023-09-10] MEDS ORDERED: ALBUTEROL SO4 HFA INHALER IH PRN (02:25)
[2023-09-10] MEDS ORDERED: ALBUTEROL SO4 0.083% IH SOL 2.5 MG/3 ML VIAL.NEB. NEB PRN (02:25)
[2023-09-10 04:02] VITALS: BMI 36.6
[2023-09-10 09:15] LABS: HEMATOCRIT 37.2 % (35.4-49); HEMOGLOBIN 12.2 GM/dL (11.7-16.9); MCH 29.1 pg (25.7-33.7); MCHC 32.8 g/dl (32.0-35.9); MEAN CELL VOLUME 88.8 fl (80-96); MEAN PLT VOLUME 9.7 fl (7.5-11.1); PLATELET COUNT 181 10^3/uL (134-434); RBC 4.18 M/mm3 (4.00-5.60); RDW 16.4 % (11.9-15.9); WHITE BLOOD COUNT 9.4 K/mm3 (4.0-10.0)
[2023-09-10 09:27] LABS: POTASSIUM 3.8 mmol/L (3.5-5.1)
[2023-09-10 09:32] LABS: CALCIUM 8.7 mg/dL (8.5-10.1)
[2023-09-10 09:33] LABS: BLOOD UREA NITROGEN 15.8 mg/dL (7-18)
[2023-09-10] MEDS: SODIUM CHLORIDE 1,000 ML IV SCH (10:16)
[2023-09-10] MEDS: FUROSEMIDE 20 MG TABLET (FP) PO SCH (10:22)
[2023-09-10] MEDS: SPIRONOLACTONE 25 MG TABLET PO SCH (10:22)
[2023-09-10] MEDS: TAMSULOSIN HCL 0.4 MG CAP PO SCH (10:22)
[2023-09-10] MEDS: metoPROLOL SUCCINATE 25 MG TAB.SR.24H (FP) PO SCH (10:22)
[2023-09-10] MEDS: BUDESONIDE/FORMOTEROL FUMARATE 160-4.5 MCG (10.3 GM INHALER) IH SCH (16:58)
[2023-09-10] MEDS: SACUBITRIL/VALSARTAN 24 MG-26 MG TABLET PO SCH (23:29)
[2023-09-11 09:44] LABS: BASO % 0.7 % (0-2.0); EOS % 4.9 % (0-4.5); HEMATOCRIT 35.4 % (35.4-49); HEMOGLOBIN 11.5 GM/dL (11.7-16.9); MCH 28.8 pg (25.7-33.7); MCHC 32.5 g/dl (32.0-35.9); MEAN CELL VOLUME 88.5 fl (80-96); MEAN PLT VOLUME 9.4 fl (7.5-11.1); MONO % 9.9 % (3.8-10.2); NEUT % 79.5 % (42.8-82.8); PLATELET COUNT 191 10^3/uL (134-434); RDW 16.2 % (11.9-15.9); WHITE BLOOD COUNT 9.9 K/mm3 (4.0-10.0)
[2023-09-11 09:47] LABS: INR 1.18 (0.83-1.09); PROTHROMBIN TIME (PATIENT) 13.7 SEC (9.7-13.0)
[2023-09-11] MEDS: ACETAMINOPHEN 500 MG TABLET (FP) PO PRN (10:03)
[2023-09-11 10:14] LABS: POTASSIUM 4.2 mmol/L (3.5-5.1)
[2023-09-11 10:25] LABS: BILIRUBIN,TOTAL 0.4 mg/dL (0.2-1)
[2023-09-11 10:26] LABS: ALBUMIN 2.9 g/dl (3.4-5.0); CALCIUM 8.1 mg/dL (8.5-10.1); MAGNESIUM 2.1 mg/dL (1.8-2.4)
[2023-09-11 10:27] LABS: TOT PROT 6.6 g/dl (6.4-8.2)
[2023-09-11] MEDS ORDERED: PROPOFOL 20 ML ONE ×2 (15:32→16:06)
[2023-09-11] MEDS ORDERED: ONDANSETRON 4 MG/2 ML VIAL IVPUSH PRN ×2 (15:47→17:00)
[2023-09-11] MEDS ORDERED: LIDOCAINE HCL/PF 2% SDV 5ML VIAL ONE (16:06)
[2023-09-11] MEDS ORDERED: MIDAZOLAM HCL 2 MG/2 ML SINGLE DOSE VIAL ONE (16:06)
[2023-09-11] MEDS ORDERED: ceFAZolin SODIUM 1 GM VIAL ONE (16:12)
[2023-09-11] MEDS ORDERED: DEXAMETHASONE SOD PHOSPHATE 4 MG/1 ML VIAL ONE (16:12)
[2023-09-11] MEDS ORDERED: PROPOFOL 40 ML ONE (16:19)
[2023-09-11] MEDS: ceFAZolin SODIUM 1 GM VIAL IVPB ONE (16:20)
[2023-09-11] MEDS ORDERED: ONDANSETRON 4 MG/2 ML VIAL ONE (16:49)
[2023-09-11] MEDS ORDERED: PROMETHAZINE HCL 25 MG/1 ML VIAL IVPB PRN (16:49)
[2023-09-11] MEDS ORDERED: KETOROLAC TROMETHAMINE 30 MG/1 ML VIAL ONE (16:50)
[2023-09-11] MEDS ORDERED: ALBUTEROL SO4 HFA INHALER IH PRN (17:00)
[2023-09-11] MEDS ORDERED: ALBUTEROL SO4 0.083% IH SOL 2.5 MG/3 ML VIAL.NEB. NEB PRN (17:00)
[2023-09-11] MEDS: ACETAMINOPHEN 1000 MG/100 ML BAG IVPB ONE (17:01)
[2023-09-11] MEDS ORDERED: ACETAMINOPHEN INJECTION 100 ML IVPB ONE (17:08)
[2023-09-11] MEDS: KETOROLAC TROMETHAMINE 15 MG/ML VIAL IVPUSH ONE (18:08)
[2023-09-11] MEDS: LACTATED RINGERS SOLUTION 1,000 ML IV SCH (20:56)
[2023-09-11] MEDS: SACUBITRIL/VALSARTAN 24 MG-26 MG TABLET PO SCH (21:26)
[2023-09-11] MEDS: BUDESONIDE/FORMOTEROL FUMARATE 160-4.5 MCG (10.3 GM INHALER) IH SCH (21:26)
[2023-09-12] MEDS: CEFAZOLIN 1 GM in DEXTROSE 5%-WATER - 50 ML IVPB SCH (00:47)
[2023-09-12] MEDS: ACETAMINOPHEN 500 MG TABLET (FP) PO PRN (07:00)
[2023-09-12 08:41] LABS: BASO % 0.6 % (0-2.0); HEMATOCRIT 35.1 % (35.4-49); HEMOGLOBIN 11.7 GM/dL (11.7-16.9); LYMPH % 2.5 % (8-40); MCH 29.6 pg (25.7-33.7); MCHC 33.4 g/dl (32.0-35.9); MEAN CELL VOLUME 88.7 fl (80-96); MEAN PLT VOLUME 9.9 fl (7.5-11.1); MONO % 7.2 % (3.8-10.2); NEUT % 89.7 % (42.8-82.8); PLATELET COUNT 224 10^3/uL (134-434); RBC 3.96 M/mm3 (4.00-5.60); RDW 16.1 % (11.9-15.9); WHITE BLOOD COUNT 10.7 K/mm3 (4.0-10.0)
[2023-09-12] MEDS: TAMSULOSIN HCL 0.4 MG CAP PO SCH (08:55)
[2023-09-12 08:58] LABS: CALCIUM 8.6 mg/dL (8.5-10.1)
[2023-09-12 08:59] LABS: ALBUMIN 2.9 g/dl (3.4-5.0); BLOOD UREA NITROGEN 17.3 mg/dL (7-18); MAGNESIUM 2.1 mg/dL (1.8-2.4)
[2023-09-12 09:01] LABS: CREATININE 1.2 mg/dL (0.55-1.3)
[2023-09-12 09:03] LABS: TOT PROT 7.1 g/dl (6.4-8.2)
[2023-09-12 09:04] LABS: BILIRUBIN,TOTAL 0.2 mg/dL (0.2-1)
[2023-09-12] MEDS: metoPROLOL SUCCINATE 25 MG TAB.SR.24H (FP) PO SCH (09:18)
[2023-09-12] MEDS: SPIRONOLACTONE 25 MG TABLET PO SCH (09:18)
[2023-09-12] MEDS: FUROSEMIDE 20 MG TABLET (FP) PO SCH (09:18)
[2023-09-12] MEDS: EMPAGLIFLOZIN (JARDIANCE) 10 MG TABLET PO SCH (10:50)
[2023-09-12 22:39] VITALS: RESP 20
[2023-09-13 07:45] VITALS: BP 104/59; PULSE 76; TEMP 98
[2023-09-13 08:06] LABS: BASO % 0.6 % (0-2.0); EOS % 1.3 % (0-4.5); HEMATOCRIT 35.9 % (35.4-49); HEMOGLOBIN 11.3 GM/dL (11.7-16.9); LYMPH % 8.2 % (8-40); MCH 28.2 pg (25.7-33.7); MCHC 31.4 g/dl (32.0-35.9); MEAN CELL VOLUME 89.8 fl (80-96); MEAN PLT VOLUME 9.5 fl (7.5-11.1); MONO % 10.7 % (3.8-10.2); NEUT % 79.2 % (42.8-82.8); PLATELET COUNT 250 10^3/uL (134-434); RDW 16.1 % (11.9-15.9); WHITE BLOOD COUNT 8.9 K/mm3 (4.0-10.0)
[2023-09-13 08:19] LABS: POTASSIUM 4.4 mmol/L (3.5-5.1)
[2023-09-13 08:22] LABS: CALCIUM 8.5 mg/dL (8.5-10.1)
[2023-09-13 08:23] LABS: ALBUMIN 2.8 g/dl (3.4-5.0); BLOOD UREA NITROGEN 23.6 mg/dL (7-18)
[2023-09-13 08:27] LABS: BILIRUBIN,TOTAL 0.1 mg/dL (0.2-1); TOT PROT 6.8 g/dl (6.4-8.2)
== END 2023-09-13 09:01 | disposition home or self-care (01) | DRG 669 ==
LOC: JER 17:33 → JERBED 18:18 → OBSVTOIN 23:22 → J8W 09-10 01:21
PROVIDERS: ADMIT Internal Medicine; ATTEND Nurse Practitioner Acute Care
PROC: 0T5B8ZZ Destruction of Bladder, Via Natural or Artificial Opening Endoscopic (ICD-10-PCS; principal; 2023-09-11 16:00)
DX: N30.41 Irradiation cystitis with hematuria (principal); D68.32 Hemorrhagic disorder due to extrinsic circulating anticoagulants; I50.42 Chronic combined systolic (congestive) and diastolic (congestive) heart failure; J84.9 Interstitial pulmonary disease, unspecified; N17.9 Acute kidney failure, unspecified; C61 Malignant neoplasm of prostate; T83.091A Other mechanical complication of indwelling urethral catheter, initial encounter; R33.9 Retention of urine, unspecified; I11.0 Hypertensive heart disease with heart failure; J47.9 Bronchiectasis, uncomplicated; E66.9 Obesity, unspecified; R58 Hemorrhage, not elsewhere classified; R31.0 Gross hematuria; R73.03 Prediabetes; F17.210 Nicotine dependence, cigarettes, uncomplicated; T39.015A Adverse effect of aspirin, initial encounter; Y83.9 Surgical procedure, unspecified as the cause of abnormal reaction of the patient, or of later complication, without mention of misadventure at the time of the procedure; X58.XXXA Exposure to other specified factors, initial encounter; Y93.9 Activity, unspecified; Y92.9 Unspecified place or not applicable; Z68.36 Body mass index [BMI] 36.0-36.9, adult
CPT/HCPCS: 36415; 80048; 80053; 83735; 85025; 85027; 85610; 85730; 86850; 86900; 86901; 93005; 93010; 94760; 99285-25; G0378; J0131

== ENCOUNTER 2023-09-21 22:16 | Emergency (ER) | payer OTHER ==
[2023-09-21 22:34] VITALS: BP 107/70; PULSE 91; RESP 19; TEMP 98.3; BMI 35.7
[2023-09-21] MEDS ORDERED: LIDOCAINE HCL 2% JELLY 6 ML TP ONE (23:30)
[2023-09-21] MEDS: LIDOCAINE HCL 2% JELLY 10 ML CARTRIDGE UR ONE (23:47)
[2023-09-21 23:54] LABS: EPI CELLS 0 /uL (0-25.1); HYALINE CASTS 0 /uL (0-3.1); URINE APPEARANCE CLOUDY; URINE BACTERIA 2502 /uL (0-1359); URINE BILIRUBIN NEGATIVE (NEGATIVE); URINE COLOR RED; URINE GLUCOSE (UA) 3+ (NEGATIVE); URINE KETONE NEGATIVE (NEGATIVE); URINE LEUK ESTERASE 1+ (NEGATIVE); URINE NITRITE NEGATIVE (NEGATIVE); URINE PROTEIN 2+ (NEGATIVE); URINE RBC 12754 /uL (0-23.9); URINE UROBILINOGEN 0.2 mg/dL (0.2-1.0); URINE WBC 344 /uL (0-25.8)
[2023-09-22] MEDS: SULFAMETHOXAZOLE/TRIMETHOPRIM 800MG/160MG D.S. TABLET PO ONE (00:15)
[2023-09-22] MEDS ORDERED: SULFAMETHOXAZOLE/TRIMETHOPRIM 800MG/160MG D.S. TABLET ONE (00:17)
== END 2023-09-22 00:15 | disposition home or self-care (01) ==
LOC: JER 22:16
PROC: 0T9B70Z Drainage of Bladder with Drainage Device, Via Natural or Artificial Opening (ICD-10-PCS; principal; 2023-09-21)
DX: R33.9 Retention of urine, unspecified (principal); R31.9 Hematuria, unspecified
CPT/HCPCS: 81003; 87077; 87086; 87186; 99283-25

== ENCOUNTER 2023-10-06 17:07 | Emergency (ER) | payer OTHER ==
[2023-10-06 17:21] VITALS: BP 107/56; PULSE 87; RESP 18; TEMP 98; BMI 35.7
[2023-10-06] MEDS ORDERED: ACETAMINOPHEN 325 MG TABLET (FP) ONE (17:56)
[2023-10-06] MEDS: ACETAMINOPHEN 500 MG TABLET (FP) PO ONE (18:02)
[2023-10-06 18:32] LABS: EPI CELLS 1 /uL (0-25.1); HYALINE CASTS 0 /uL (0-3.1); URINE APPEARANCE TURBID; URINE BACTERIA >9,000 /uL (0-1359); URINE BILIRUBIN NEGATIVE (NEGATIVE); URINE COLOR YELLOW; URINE GLUCOSE (UA) 3+ (NEGATIVE); URINE KETONE NEGATIVE (NEGATIVE); URINE LEUK ESTERASE 2+ (NEGATIVE); URINE NITRITE NEGATIVE (NEGATIVE); URINE PROTEIN 2+ (NEGATIVE); URINE RBC 94 /uL (0-23.9); URINE UROBILINOGEN 0.2 mg/dL (0.2-1.0); URINE WBC 6630 /uL (0-25.8)
== END 2023-10-06 18:59 | disposition home or self-care (01) ==
LOC: JER 17:07
DX: T83.511A Infection and inflammatory reaction due to indwelling urethral catheter, initial encounter (principal); N39.0 Urinary tract infection, site not specified; R10.30 Lower abdominal pain, unspecified
CPT/HCPCS: 81003; 87086; 87186; 99283-25

== ENCOUNTER 2023-12-18 19:57 | Observation (INO) | payer OTHER ==
[2023-12-18 20:38] LABS: HEMATOCRIT 43.3 % (35.4-49); HEMOGLOBIN 13.7 G/dL (11.7-16.9); MCH 26.3 pg (25.7-33.7); MCHC 31.6 g/dl (32.0-35.9); MEAN CELL VOLUME 83.2 fl (80-96); MEAN PLT VOLUME 9.5 fl (7.5-11.1); PLATELET COUNT 165.2 10^3/uL (134-434); RDW 16.9 % (11.9-15.9); WHITE BLOOD COUNT 7.3 10^3/uL (4.0-10.8)
[2023-12-18 20:58] LABS: ALBUMIN 4.1 g/dl (3.4-5.0); BILIRUBIN,TOTAL 0.4 mg/dl (0.2-1); CALCIUM 9.1 mg/dl (8.5-10.1); CREATININE 1.6 mg/dl (0.6-1.3); POTASSIUM 3.8 mmol/L (3.5-5.1); TOT PROT 7.5 g/dl (6.4-8.2)
[2023-12-18 21:00] LABS: PLATELET ESTIMATE ADEQUATE
[2023-12-18] MEDS: SODIUM CHLORIDE 500 ML IV STA (21:05)
[2023-12-19] MEDS: ACETAMINOPHEN 325 MG TABLET (FP) PO PRN (00:10)
[2023-12-19] MEDS ORDERED: MECLIZINE HCL 25 MG TABLET (FP) PO PRN (06:33)
[2023-12-19] MEDS ORDERED: ALBUTEROL SO4 HFA INHALER IH PRN (06:33)
[2023-12-19] MEDS: INSULIN ASPART SLIDING SCALE (NOVOLOG) 1 VIAL SQ SCH (06:59)
[2023-12-19 08:37] LABS: ANION GAP 13 mmol/L (4-13); CALCIUM 8.9 mg/dl (8.5-10.1); CHLORIDE 100 mmol/L (98-107); CO2 24 mmol/L (21-32); CREATININE 1.4 mg/dl (0.6-1.3); GLUCOSE,RANDOM 123 mg/dl (74-106); MAGNESIUM 1.8 mg/dL (1.8-2.4); PHOSPHOROUS 3.6 (2.5-4.9); POTASSIUM 3.7 mmol/L (3.5-5.1); SODIUM 137 mmol/L (136-145)
[2023-12-19] MEDS: TAMSULOSIN HCL 0.4 MG CAP PO SCH (09:19)
[2023-12-19] MEDS: EMPAGLIFLOZIN (JARDIANCE) 10 MG TABLET PO SCH (09:19)
[2023-12-19] MEDS: HEPARIN NA (PORCINE) 5,000 UNITS/ML 1ML VIAL SQ SCH (09:20)
[2023-12-19 09:29] LABS: BASO % 0.6 % (0-2.0); EOS % 2.4 % (0-4.5); HEMATOCRIT 39.2 % (35.4-49); HEMOGLOBIN 12.7 GM/dL (11.7-16.9); MCH 26.5 pg (25.7-33.7); MCHC 32.5 g/dl (32.0-35.9); MEAN CELL VOLUME 81.5 fl (80-96); MEAN PLT VOLUME 9.5 fl (7.5-11.1); MONO % 15.5 % (3.8-10.2); NEUT % 71.5 % (42.8-82.8); PLATELET COUNT 169 10^3/uL (134-434); RBC 4.81 M/mm3 (4.00-5.60); RDW 17.8 % (11.9-15.9); WHITE BLOOD COUNT 7.6 K/mm3 (4.0-10.0)
[2023-12-19] MEDS ORDERED: PATIENT'S OWN MEDICATION (NON-FORMULARY) (Fluticasone/Vilanterol 1 PUFF Each) IH SCH (10:00)
[2023-12-19 15:34] VITALS: BMI 34.3
[2023-12-19] MEDS: BUDESONIDE/FORMOTEROL FUMARATE 160-4.5 MCG (10.3 GM INHALER) IH SCH (17:19)
[2023-12-19] MEDS: SODIUM CHLORIDE 0.45% 1,000 ML IV SCH (17:50)
[2023-12-19] MEDS: ATORVASTATIN CA 40 MG TABLET (FP) PO SCH (21:26)
[2023-12-20] MEDS ORDERED: INSULIN ASPART SLIDING SCALE (NOVOLOG) 1 VIAL SQ ONE (06:52)
[2023-12-20 08:47] LABS: HEMATOCRIT 39.6 % (35.4-49); HEMOGLOBIN 12.1 G/dL (11.7-16.9); MCH 25.4 pg (25.7-33.7); MCHC 30.4 g/dl (32.0-35.9); MEAN CELL VOLUME 83.4 fl (80-96); PLATELET COUNT 155.6 10^3/uL (134-434); RBC 4.75 10^6/uL (4.00-5.60); RDW 17.5 % (11.9-15.9); WHITE BLOOD COUNT 5.6 10^3/uL (4.0-10.8)
[2023-12-20 08:53] LABS: ALBUMIN 3.7 g/dl (3.4-5.0); ALK PHOS 95 U/L (45-117); ANION GAP 8 mmol/L (4-13); BILIRUBIN,TOTAL 0.3 mg/dl (0.2-1); CHLORIDE 102 mmol/L (98-107); CO2 28 mmol/L (21-32); CREATININE 1.3 mg/dl (0.6-1.3); GLUCOSE,RANDOM 155 mg/dl (74-106); POTASSIUM 3.7 mmol/L (3.5-5.1); SGOT/AST 9 U/L (15-37); SGPT/ALT 10 U/L (7-52); SODIUM 138 mmol/L (136-145); TOT PROT 6.8 g/dl (6.4-8.2)
[2023-12-20] MEDS: MELATONIN 5 MG TABLETS PO SCH (21:13)
[2023-12-21] MEDS: POLYETHYLENE GLYCOL (HEALTHYLAX) 3350 17 GM PACKET PO SCH (09:58)
[2023-12-21] MEDS: SULFAMETHOXAZOLE/TRIMETHOPRIM 800MG/160MG D.S. TABLET PO ONE (09:58)
[2023-12-21 10:04] VITALS: RESP 18
[2023-12-21 14:02] VITALS: BP 110/72; PULSE 88; TEMP 98.7
[2023-12-21] MEDS ORDERED: MIRTAZAPINE 15 MG TABLET (FP) PO SCH (22:00)
== END 2023-12-21 17:06 | disposition home or self-care (01) ==
LOC: FER 19:57 → FM/S 22:54
PROVIDERS: ADMIT Internal Medicine; ATTEND Internal Medicine
PROC: 3E023GC Introduction of Other Therapeutic Substance into Muscle, Percutaneous Approach (ICD-10-PCS; principal; 2023-12-18)
PROC: 3E0337Z Introduction of Electrolytic and Water Balance Substance into Peripheral Vein, Percutaneous Approach (ICD-10-PCS; 2023-12-18)
DX: G45.9 Transient cerebral ischemic attack, unspecified (principal); R47.81 Slurred speech; C61 Malignant neoplasm of prostate; J44.9 Chronic obstructive pulmonary disease, unspecified; I25.10 Atherosclerotic heart disease of native coronary artery without angina pectoris; I50.9 Heart failure, unspecified; I11.0 Hypertensive heart disease with heart failure; E11.9 Type 2 diabetes mellitus without complications; Z87.891 Personal history of nicotine dependence; R42 Dizziness and giddiness; R31.9 Hematuria, unspecified; Z88.0 Allergy status to penicillin
CPT/HCPCS: 36415; 70450-TC; 70551-TC; 71045-TC-FY; 76536-TC; 76775-TC; 76856-TC; 80048; 80053; 81003; 81015; 82962; 83735; 84100; 84484; 85025; 85027; 87040; 87077; 87086; 87186; 93005; 93880-TC; 96360; 96361; 96372; 97116-GP; 97162-GP; 99285-25; G0378; J1644